=== PATIENT | female | born 1950 | race Caucasian/White ===

== ENCOUNTER 2018-03-19 02:57 | Emergency (ER) | payer MEDICARE, BC ==
[2018-03-19] MEDS ORDERED: SODIUM CHLORIDE 0.9% 1,000 ML IV ONE (03:16)
[2018-03-19 03:24] LABS: BASOPHILS # (AUTO) 0.1 10^3/uL (0.0-0.1); BASOPHILS % (AUTO) 0.7 %; EOSINOPHILS # (AUTO) 0.3 10^3/uL (0.0-0.7); EOSINOPHILS % (AUTO) 2.3 %; HGB - HEMOGLOBIN 17.1 g/dL (12.0-16.0); MEAN CORPUSCULAR HEMOGLOBIN 28.7 pg (27.0-31.0); MEAN CORPUSCULAR HGB CONC 33.6 g/dL (32.0-36.0); MEAN CORPUSCULAR VOLUME 85.6 fL (81.0-99.0); MEAN PLATELET VOLUME 8.6 fL (7.9-10.8); MONOCYTES # (AUTO) 0.9 10^3/uL (0.0-1.0); MONOCYTES % (AUTO) 8.1 %; NEUTROPHILS # (AUTO) 7.5 10^3/uL (1.5-6.6); NEUTROPHILS % (AUTO) 69.9 %; PLT - PLATELET COUNT 450 10^3/uL (130-450); RED BLOOD COUNT 5.96 10^6/uL (4.20-5.40); RED CELL DISTRIBUTION WIDTH 14.8 % (12.0-15.0); WHITE BLOOD COUNT 10.7 x10^3/uL (4.8-10.8)
--- NOTE | 2018-03-19 03:29 | ED Physician Documentation ---
PD HPI NVD - Stated complaint Stated Complaint: DIARRHEA - Chief complaint Chief Complaint: Abd Pain - History obtained from History obtained from: Patient, Family - History of Present Illness Timing - onset: How many days ago (2) Timing - duration: Days (2) Timing - details: Gradual onset, Still present Associated symptoms: Abdominal pain Contributing factors: No: Sick contact, Bad food, Recent antibiotics Improved by: Laying still Worsened by: Eating Similar symptoms before: Has not had sx before Recently seen: Not recently seen - Additonal information Additional information: 67 y/o female with a history of colon resection and chronic diarrhea has developed acute worsening of her usual diarrhea and she has developed vomiting as well. She feels dehydrated and has flow through diarrhea. She reports being in the rest room repeatedly throughout the day. She usually takes a dose of immodium with good results and today this is completely ineffective. 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: Tubal ligation - Present Medications Home Medications: Ambulatory Orders Medication Instructions Recorded Confirmed Metformin HCl [Glucophage Xr] 1,000 mg ORAL BID 11/02/12 03/19/18 Omeprazole [PriLOSEC] 20 mg ORAL DAILY 11/02/12 03/19/18 Ciprofloxacin HCl [Cipro] 500 mg PO BID #10 tablet 03/19/18 Diphenoxylate/Atropine [Lomotil] 1 each PO QID PRN #20 tablet 03/19/18 Fenofibrate 1 tab PO DAILY 03/19/18 03/19/18 Levothyroxine Sodium [Synthroid] 1 tab PO DAILY 03/19/18 03/19/18 Losartan/Hydrochlorothiazide 1 tab PO DAILY 03/19/18 03/19/18 [Losartan-Hctz 100-12.5 mg Tab] Metoprolol Succinate 1 tab PO DAILY 03/19/18 03/19/18 Ondansetron Odt [Zofran] 4 mg TL Q6H PRN #10 tablet 03/19/18 amLODIPine [Norvasc] 2.5 mg PO DAILY 03/19/18 03/19/18 - Allergies Allergies/Adverse Reactions: Allergies Allergy/AdvReac Type Severity Reaction Status Date / Time Penicillins Allergy Nausea Verified 03/19/18 03:06 Sulfa (Sulfonamide Allergy not known Verified 03/19/18 03:06 Antibiotics) PD ED PE NORMAL - Vitals Vital signs reviewed: Yes (tachy ) - General General: Alert and oriented X 3, Well developed/nourished, Other (the patient appears pale with a sour look on her face. ) - HEENT HEENT: Atraumatic, PERRL, EOMI, Other (dry mucous membranes. ) - Neck Neck: Supple, no meningeal sign, No bony TTP - Cardiac Cardiac: No murmur, Other (tachy to 110) - Respiratory Respiratory: No respiratory distress, Clear bilaterally - Abdomen Abdomen: Soft, Other (hyperactive bowel sounds throughout minimal tenderness) - Back Back: No CVA TTP, No spinal TTP - Derm Derm: Normal color, Warm and dry, No rash - Extremities Extremities: No deformity, No edema - Neuro Neuro: Alert and oriented X 3, supervisor shaving and splitting 2-12 intact, No motor deficit, No sensory deficit, Normal speech Eye Opening: Spontaneous Motor: Obeys Commands Verbal: Oriented GCS Score: 15 - Psych Psych: Normal mood, Normal affect Results - Vitals Vitals: Vital Signs - 24 hr 03/19/18 03/19/18 03/19/18 03:00 04:08 05:02 Temperature 36.0 C L Heart Rate 102 H 96 93 Respiratory 19 18 16 Rate Blood Pressure 109/65 137/61 H 115/66 O2 Saturation 95 100 95 03/19/18 03/19/18 06:30 06:53 Temperature Heart Rate 96 93 Respiratory 18 19 Rate Blood Pressure 111/66 114/61 O2 Saturation 94 95 Oxygen O2 Source Room air - Labs Labs: Microbiology 03/19/18 04:05 Clostridium difficile (PCR) - Final Stool 03/19/18 04:05 Campylobacter Antigen Assay - Final Stool Laboratory Tests 03/19/18 03/19/18 03/19/18 03:15 03:15 04:05 WBC 10.7 RBC 5.96 H Hgb 17.1 H Hct 51.1 H MCV 85.6 MCH 28.7 MCHC 33.6 RDW 14.8 Plt Count 450 MPV 8.6 Neut # (Auto) 7.5 H Lymph # (Auto) 2.0 [place] # (Auto) 0.9 Eos # (Auto) 0.3 Baso # (Auto) 0.1 Absolute Nucleated RBC 0.00 Nucleated RBC % 0.0 Sodium 131 L Potassium 3.3 L Chloride 96 L Carbon Dioxide 23 Anion Gap 12.0 BUN 22 H Creatinine 1.2 H Estimated GFR (MDRD) 45 L Glucose 264 H Calcium 8.3 L Total Bilirubin 0.7 AST 22 ALT 21 Alkaline Phosphatase 52 Total Protein 7.2 Albumin 3.7 Globulin 3.5 Albumin/Globulin Ratio 1.1 Lipase 14 L Urine Color YELLOW Urine Clarity CLEAR Urine pH 6.0 Ur Specific [place] 1.025 Urine Protein 30 H Urine Glucose (UA) NEGATIVE Urine Ketones TRACE Urine Occult Blood SMALL H Urine Nitrite NEGATIVE Urine Bilirubin NEGATIVE Urine Urobilinogen 0.2 (NORMAL) Ur Leukocyte Esterase SMALL H Urine RBC 6-10 H Urine WBC 6-10 H Ur Squamous Epith Cells FEW Squamous Urine Bacteria Moderate H Urine Casts 11-25 Hyaline Casts Urine Mucus Few Strands Ur Microscopic Review INDICATED Urine Culture Comments INDICATED Procedures - IVC sono (time) 0315 Bedside IVC sono: IVC measures (cm) (1.13), IVC collapsed c insp (cm) (complete), Dehydration (est 1 liter deficit) PD MEDICAL DECISION MAKING - ED course Complexity details: reviewed old records, reviewed results, re-evaluated patient, considered differential, d/w patient, d/w family ED course: 67 y/o female with flow through diarrhea appears dehydrated on interrogation of the IVC and IV saline is begun. Patient does have low potassium she is administered 10 mEq of potassium intravenously as well. She is administered Lomotil with some improvement in her diarrhea. She has nearly flow through diarrhea and has had this for 3 days. She is much improved at the conclusion of the visit. I discussed with the patient the use of empiric antibiotic for treatment of uncontrolled diarrhea and we will use a 5-day course of Cipro. Departure - Departure Disposition: 01 Home, Self Care Clinical Impression: Dehydration, Hypokalemia due to loss of potassium Condition: Stable Instructions: ED Dehydration, ED Diet High Potassium, ED Diarrhea Bacterial Follow-Up: Tashia Bailey PA-C [Provider Admit Priv/Credential] - Prescriptions: Ciprofloxacin HCl [Cipro] 500 mg PO BID #10 tablet Diphenoxylate/Atropine [Lomotil] 1 each PO QID PRN #20 tablet PRN Reason: Diarrhea Ondansetron Odt [Zofran] 4 mg TL Q6H PRN #10 tablet PRN Reason: Nausea / Vomiting
[2018-03-19 03:35] LABS: ALBUMIN 3.7 g/dL (3.2-5.5); ALBUMIN/GLOBULIN RATIO 1.1 (1.0-2.2); BILIRUBIN,TOTAL 0.7 mg/dL (0.2-1.0); CALCIUM 8.3 mg/dL (8.5-10.3); CREATININE 1.2 mg/dL (0.4-1.0); TOTAL PROTEIN 7.2 g/dL (6.7-8.2)
[2018-03-19] MEDS ORDERED: POTASSIUM BICARB 25 MEQ TABLET PO STA (04:03)
[2018-03-19] MEDS ORDERED: DIPHENOX/ATROPINE 2.5/0.025 MG TABLET PO STA (04:05)
[2018-03-19 04:54] LABS: BILIRUBIN,URINE NEGATIVE (NEGATIVE); GLUCOSE, URINE (UA) NEGATIVE (NEGATIVE); KETONES,URINE (UA) TRACE mg/dL (NEGATIVE); LEUKOCYTE ESTERASE, URINE SMALL (NEGATIVE); NITRITE,URINE NEGATIVE (NEGATIVE); OCCULT BLOOD,URINE SMALL (NEGATIVE); PROTEIN,URINE 30 mg/dL (NEGATIVE); UROBILINOGEN,URINE 0.2 (NORMAL) E.U./dL (NORMAL)
[2018-03-19 04:58] LABS: CLARITY,URINE CLEAR (CLEAR)
[2018-03-19 05:11] LABS: BACTERIA,URINE Moderate /HPF (None Seen); CASTS, URINE 11-25 Hyaline Casts /LPF; MUCUS,URINE Few Strands; SQUAMOUS EPITHELIAL CELL,UR FEW Squamous (<= Few)
[2018-03-19] MEDS ORDERED: POTASSIUM CHLOR 10 MEQ/100 ML 10 MEQ/100 ML BAG IV ONE (06:20)
[2018-03-19 08:03] VITALS: BP 116/72
== END 2018-03-19 07:46 | disposition home or self-care (01) ==
LOC: ED 02:57
DX: E86.0 Dehydration (principal); E87.6 Hypokalemia; E03.9 Hypothyroidism, unspecified; I25.2 Old myocardial infarction
CPT/HCPCS: 36415; 80053; 81001; 83690; 85025; 87045; 87046; 87086; 87181; 87493; 96361; 96365; 99284; 99285; A9270; 81003

== ENCOUNTER 2018-03-27 08:00 | Outpatient (CLI) | payer MEDICARE, BC | END 2018-03-27 23:59 | disposition home or self-care (01) | LOC: LAB.WCP 08:00 | PROVIDERS: ATTEND Family Medicine | DX: R19.7 Diarrhea, unspecified (principal) | CPT/HCPCS: 81599; 83630; 87045; 87046; 87177; 87209; 87329; 87493 ==

== ENCOUNTER 2018-03-30 08:00 | Outpatient (CLI) | payer MEDICARE, BC | END 2018-03-30 23:59 | disposition home or self-care (01) | LOC: LAB.WCP 08:00 | PROVIDERS: ATTEND Family Medicine | DX: R19.7 Diarrhea, unspecified (principal) | CPT/HCPCS: 87045; 87046 ==

== ENCOUNTER 2018-04-24 13:24 | Outpatient (CLI) | payer MEDICARE, BC ==
--- NOTE | 2018-04-27 09:02 | Mammography Report ---
Reason: SCREENING MAMMO Procedure Date: 04/24/2018 Accession Number: [id number] / [id number] Procedure: JASVIR - Screening Mammo w/Andrew CPT Code: FULL RESULT: EXAM: Screening Mammo w/Andrew DATE: 04/24/2018 1:49 PM CLINICAL HISTORY: Screening encounter. No reported risk factors. TECHNIQUE: Bilateral CC and MLO views were obtained. COMPARISON: 02/24/2017 through 12/23/2012. FINDINGS: The breasts demonstrate scattered fibroglandular densities bilaterally. There are typically benign vascular calcifications. No suspicious masses, clustered microcalcifications, or regions of architectural distortion are identified. IMPRESSION: Benign findings RECOMMENDATION: Routine annual screening unless otherwise clinically indicated. BIRADS CATEGORY 2: Benign findings STANDARD QUALIFYING STATEMENTS: 1. This examination was not reviewed with the aid of Computer-Aided Detection (CAD). 2. A negative or benign imaging report should not preclude biopsy if clinically suspicious findings are present. 3. Dense breasts may obscure an underlying neoplasm. 4. This examination was reviewed with the aid of 3D breast imaging (tomosynthesis).
== END 2018-04-24 13:25 | disposition home or self-care (01) ==
LOC: DI 13:24
DX: Z12.31 Encounter for screening mammogram for malignant neoplasm of breast (principal)
CPT/HCPCS: 77063; 77067

== ENCOUNTER 2018-06-30 12:40 | Emergency (ER) | payer MEDICARE, BC ==
[2018-06-30 12:45] VITALS: BP 147/65
--- NOTE | 2018-06-30 13:33 | ED Physician Documentation ---
PD HPI OPHTHO - Stated complaint Stated Complaint: VISUAL DISTURBANCE - Chief complaint Chief Complaint: Heent - History obtained from History obtained from: Patient - History of Present Illness Timing - onset: How many days ago (5) Timing - duration: Days (5) Timing - details: Abrupt onset, Intermittant Pain level max: 0 Pain level now: 0 Location: Both Quality / character: Other (states that she sees bright flashes of colored lights and waves in her vision occassionally) Associated symptoms: No: Redness, Swelling, Tearing, Discharge, Matting, FB sensation, Photophobia, Double vision, Decreased vision, Loss of vision, He adache Contributing factors: No: Exposed to conjunctivitis, Recent URI, FB, UV light (welding etc), Chemical exposure, acid, Chemical exposure, base, Blunt trauma, Penetrating trauma, 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 Review of Systems Constitutional: denies: Fever, Chills Eyes: denies: Loss of vision, Irritation Nose: denies: Rhinorrhea / runny nose, Congestion Throat: denies: Sore throat Cardiac: denies: Chest pain / pressure Respiratory: denies: Cough GI: denies: Abdominal Pain, Nausea, Vomiting, Diarrhea Skin: denies: Rash Musculoskeletal: denies: Neck pain, Back pain Neurologic: denies: Focal weakness, Numbness, Difficulty speaking PD PAST MEDICAL HISTORY - Past Medical History Cardiovascular: [place] Endocrine/Autoimmune: HyPOthyroidism GI: GERD, Hiatal hernia - Past Surgical History Past Surgical History: Yes 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 Cardiovascular: Coronary stent - Present Medications Home Medications: Ambulatory Orders Medication Instructions Recorded Confirmed Metformin HCl [Glucophage Xr] 1,000 mg ORAL BID 11/02/12 03/19/18 Omeprazole [PriLOSEC] 20 mg ORAL DAILY 11/02/12 03/19/18 Ciprofloxacin HCl [Cipro] 500 mg PO BID #10 tablet 03/19/18 Diphenoxylate/Atropine [Lomotil] 1 each PO QID PRN #20 tablet 03/19/18 Fenofibrate 1 tab PO DAILY 03/19/18 03/19/18 Levothyroxine Sodium [Synthroid] 1 tab PO DAILY 03/19/18 03/19/18 Losartan/Hydrochlorothiazide 1 tab PO DAILY 03/19/18 03/19/18 [Losartan-Hctz 100-12.5 mg Tab] Metoprolol Succinate 1 tab PO DAILY 03/19/18 03/19/18 Ondansetron Odt [Zofran] 4 mg TL Q6H PRN #10 tablet 03/19/18 amLODIPine [Norvasc] 2.5 mg PO DAILY 03/19/18 03/19/18 - Allergies Allergies/Adverse Reactions: Allergies Allergy/AdvReac Type Severity Reaction Status Date / Time Penicillins Allergy Nausea Verified 03/19/18 03:06 Sulfa (Sulfonamide Allergy not known Verified 03/19/18 03:06 Antibiotics) - Social History Does the pt smoke?: No Smoking Status: Never smoker Does the pt drink ETOH?: No Does the pt have substance abuse?: No - Immunizations Immunizations are current?: Yes - POLST Patient has POLST: No PD ED PE NORMAL - Vitals Vital signs reviewed: Yes - General General: Alert and oriented X 3, No acute distress, Well developed/nourished - HEENT HEENT: PERRL, Moist mucous membranes, Other (Fundus is visualized bilaterally. Did not visualize any acute changes. Optic nerve is clear. 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 Possible related to small retinal detachment, but vitreous is clear. These do not involve the fovea. We will have her follow-up with her councilor in the morning. Patient counseled regarding signs and symptoms for which I believe and urgent re- evaluation would be necessary. Patient with good understanding of and agreement to plan and is comfortable going home at this time This document was made in part using voice recognition software. While efforts are made to proofread this document, sound alike and grammatical errors may occur. Departure - Departure Disposition: 01 Home, Self Care Clinical Impression: Scotoma Qualifiers: Laterality: bilateral Qualified Code(s): H53.413 - Scotoma involving central area, bilateral Condition: Good Instructions: Flashes and Floaters Follow-Up: your,eye doctor tomorrow [Other] Ashish Esquivel MD [Provider Admit Priv/Credential] - Tomorrow Comments: You need to be seen by an councilor tomorrow. Return if you worsen. Follow-up with your doctor tomorrow for further care. Discharge Date/Time: 06/30/18 13:44
== END 2018-06-30 13:44 | disposition home or self-care (01) ==
LOC: ED 12:40
DX: H53.413 Scotoma involving central area, bilateral (principal)
CPT/HCPCS: 99282; 99283

== ENCOUNTER 2018-12-06 15:37 | Emergency (ER) | payer MEDICARE, BC ==
--- NOTE | 2018-12-06 16:02 | ED Physician Documentation ---
PD HPI NVD - Stated complaint Stated Complaint: VOMITING/DIARRHEA - Chief complaint Chief Complaint: Abd Pain - History obtained from History obtained from: Patient - History of Present Illness Timing - onset: How many days ago (3) Timing - duration: Days (3) Timing - details: Abrupt onset, Still present Associated symptoms: Abdominal pain (Just with vomiting and not consistent), Loss of appetite. No: Fever, Chest pain, Hematemesis, Melena, Dizzy (but feeling weak and some lightheaded today) Contributing factors: No: Sick contact, Bad food, Travel, Recent antibiotics Improved by: No: Vomiting Worsened by: Eating Similar symptoms before: Has not had sx before Recently seen: Not recently seen Review of Systems Constitutional: reports: Myalgias. denies: Fever, Chills Nose: denies: Rhinorrhea / runny nose, Congestion Throat: denies: Sore throat Respiratory: denies: Cough GI: reports: Abdominal Pain, Nausea, Vomiting, Diarrhea. denies: Abdominal Swelling, Hematemesis, Bloody / black stool : denies: Dysuria Skin: denies: Abrasion (s), Laceration (s) Neurologic: reports: Generalized weakness. 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 Cardiovascular: Coronary stent - Present Medications Home Medications: Ambulatory Orders Medication Instructions Recorded Confirmed Omeprazole [PriLOSEC] 20 mg ORAL DAILY 11/02/12 12/06/18 Fenofibrate 1 tab PO DAILY 03/19/18 12/06/18 Levothyroxine Sodium [Synthroid] 1 tab PO DAILY 03/19/18 12/06/18 Losartan/Hydrochlorothiazide 1 tab PO DAILY 03/19/18 12/06/18 [Losartan-Hctz 100-12.5 mg Tab] Metoprolol Succinate 1 tab PO DAILY 03/19/18 12/06/18 amLODIPine [Norvasc] 2.5 mg PO DAILY 03/19/18 12/06/18 Diphenoxylate/Atropine [Lomotil] 1 each PO QID PRN #12 tablet 12/06/18 Liraglutide [Victoza 2-Karel] 0.6 mg SQ DAILY 12/06/18 12/06/18 Ondansetron Odt [Zofran] 4 mg TL Q6H PRN #10 tablet 12/06/18 - Allergies Allergies/Adverse Reactions: Allergies Allergy/AdvReac Type Severity Reaction Status Date / Time fluvastatin [From Lescol] Allergy Unknown Verified 07/02/18 08:35 omeprazole [From Prilosec] Allergy Unknown Verified 07/02/18 08:35 Penicillins Allergy Nausea Verified 03/19/18 03:06 Sulfa (Sulfonamide Allergy not known Verified 03/19/18 03:06 Antibiotics) benazepril [From Lotensin] AdvReac Respiratory Verified 07/02/18 08:35 - Social History Does the pt smoke?: No Smoking Status: Never smoker Does the pt drink ETOH?: No Does the pt have substance abuse?: No - Immunizations Immunizations are current?: Yes - POLST Patient has POLST: No PD ED PE NORMAL - Vitals Vital signs reviewed: Yes - General General: Alert and oriented X 3, No acute distress, Well developed/nourished - HEENT HEENT: Pharynx benign. No: Moist mucous membranes - Neck Neck: Supple, no meningeal sign, No adenopathy - Cardiac Cardiac: RRR, No murmur - Respiratory Respiratory: Clear bilaterally - Abdomen Abdomen: Normal bowel sounds, Soft, Non tender, Non distended, No organomegaly - Derm Derm: Warm and dry. No: Normal color (some pallor) - Extremities Extremities: No deformity, No tenderness to palpate, Normal ROM s pain, No edema, No calf tenderness / cord - Neuro Neuro: Alert and oriented X 3, No motor deficit, Normal speech Results - Vitals Vitals: Vital Signs - 24 hr 12/06/18 12/06/18 15:43 18:31 Temperature 36.0 C L Heart Rate 97 77 Respiratory 14 16 Rate Blood Pressure 124/52 L 119/59 L O2 Saturation 97 99 Oxygen O2 Source Room air - Labs Labs: Laboratory Tests 12/06/18 12/06/18 16:00 16:00 WBC 6.5 RBC 4.75 Hgb 14.4 Hct 42.7 MCV 89.9 MCH 30.3 MCHC 33.7 RDW 13.4 Plt Count 324 MPV 9.7 Neut # (Auto) 4.7 Lymph # (Auto) 0.7 L [place] # (Auto) 0.8 Eos # (Auto) 0.1 Baso # (Auto) 0.0 Absolute Nucleated RBC 0.00 Nucleated RBC % 0.0 Sodium 139 Potassium 3.5 Chloride 101 Carbon Dioxide 24 Anion Gap 14.0 H BUN 31 H Creatinine 0.9 Estimated GFR (MDRD) 63 L Glucose 159 H Calcium 9.4 Magnesium 1.8 Total Bilirubin 0.7 AST 20 ALT 23 Alkaline Phosphatase 40 L Total Protein 7.5 Albumin 4.0 Globulin 3.5 Albumin/Globulin Ratio 1.1 Lipase 35 Departure - Departure Disposition: 01 Home, Self Care Clinical Impression: Nausea vomiting and diarrhea, Dehydration Condition: Stable Record reviewed to determine appropriate education?: Yes Instructions: ED Diet Vomiting Diarrhea Follow-Up: Tashia Bailey PA-C [Primary Care Provider] - Prescriptions: Diphenoxylate/Atropine [Lomotil] 1 each PO QID PRN #12 tablet PRN Reason: Diarrhea Ondansetron Odt [Zofran] 4 mg TL Q6H PRN #10 tablet PRN Reason: Nausea / Vomiting Comments: This commonly will be from a viral illness or food related. Sometimes it can be a bacterial infection such as C. difficile or Campylobacter. Use ondansetron if needed for nausea. Small frequent fluids and bland food initially and progress diet as able. Lomotil if needed for diarrhea. If the diarrhea does persist some another day or 2, then bring a sample of the diarrhea to your primary care provider to have a tested for stool culture and C. difficile. If you resolve in the next day or 2 with symptoms improved then no testing necessarily needed. Return if worsening symptoms again.
[2018-12-06 16:04] LABS: BASOPHILS % (AUTO) 0.3 %; EOSINOPHILS # (AUTO) 0.1 10^3/uL (0.0-0.7); EOSINOPHILS % (AUTO) 1.9 %; HGB - HEMOGLOBIN 14.4 g/dL (12.0-16.0); LYMPHOCYTES # (AUTO) 0.7 10^3/uL (1.5-3.5); LYMPHOCYTES % (AUTO) 11.5 %; MEAN CORPUSCULAR HEMOGLOBIN 30.3 pg (27.0-31.0); MEAN CORPUSCULAR HGB CONC 33.7 g/dL (32.0-36.0); MEAN CORPUSCULAR VOLUME 89.9 fL (81.0-99.0); MEAN PLATELET VOLUME 9.7 fL (7.9-10.8); MONOCYTES # (AUTO) 0.8 10^3/uL (0.0-1.0); NEUTROPHILS # (AUTO) 4.7 10^3/uL (1.5-6.6); PLT - PLATELET COUNT 324 10^3/uL (130-450); RED BLOOD COUNT 4.75 10^6/uL (4.20-5.40); RED CELL DISTRIBUTION WIDTH 13.4 % (12.0-15.0); WHITE BLOOD COUNT 6.5 x10^3/uL (4.8-10.8)
[2018-12-06 16:17] LABS: ALBUMIN/GLOBULIN RATIO 1.1 (1.0-2.2); BILIRUBIN,TOTAL 0.7 mg/dL (0.2-1.0); CALCIUM 9.4 mg/dL (8.5-10.3); CREATININE 0.9 mg/dL (0.4-1.0); TOTAL PROTEIN 7.5 g/dL (6.7-8.2)
[2018-12-06] MEDS ORDERED: ONDANSETRON 4 MG/2 ML VIAL IVP STA (16:21)
[2018-12-06] MEDS ORDERED: SODIUM CHLORIDE 0.9% 1,000 ML IV ONE ×2 (16:21→18:18)
[2018-12-06] MEDS ORDERED: MORPHINE 10 MG/ML VIAL IVP STA (16:22)
[2018-12-06] MEDS ORDERED: DIPHENOX/ATROPINE 2.5/0.025 MG TABLET PO STA (16:22)
[2018-12-06] MEDS ORDERED: FAMOTIDINE 20 MG/2 ML VIAL IVP STA (16:22)
[2018-12-06 16:49] LABS: MAGNESIUM 1.8 mg/dL (1.7-2.8)
[2018-12-06 18:35] VITALS: BP 119/59
[2018-12-06] MEDS ORDERED: ONDANSETRON ODT 4 MG Prepack 2 TL PRN (19:04)
== END 2018-12-06 19:32 | disposition home or self-care (01) ==
LOC: ED 15:37
DX: E86.0 Dehydration (principal); R11.2 Nausea with vomiting, unspecified; R19.7 Diarrhea, unspecified
CPT/HCPCS: 36415; 80053; 83690; 83735; 85025; 96361; 96374; 99283; 99284; A9270

== ENCOUNTER 2019-04-28 09:02 | Outpatient (CLI) | payer MEDICARE, BC ==
--- NOTE | 2019-04-28 13:23 | Mammography Report ---
Reason: ROUTINE MAMMO Procedure Date: 04/28/2019 Accession Number: [id number] / [id number] Procedure: JASVIR - Screening Mammo w/Andrew CPT Code: Final Report FULL RESULT: EXAM: Screening Mammo w/Andrew DATE: 04/28/2019 9:27 AM CLINICAL HISTORY: The patient is an asymptomatic 69-year-old female. No reported personal nor family history of breast cancer. TECHNIQUE: (B) - Bilateral CC and MLO views were obtained. COMPARISON: 04/24/2018, 02/24/2017, 02/21/2016, 02/12/2016, 02/07/2015, 12/28/2013 12/23/2012 PARENCHYMAL PATTERN: (A) - The breasts demonstrate scattered fibroglandular densities bilaterally. FINDINGS: The pattern of asymmetry is stable given positional variation. There are no suspicious masses, calcifications, or areas of distortion. IMPRESSION: Negative examination. BI-RADS category 1. RECOMMENDATION: (ANNUAL) - Recommend routine annual screening mammography. BI-RADS CATEGORY: (1) - Negative. STANDARD QUALIFYING STATEMENTS: A negative or benign imaging report should not preclude biopsy if clinically suspicious findings are present. Dense breasts may obscure an underlying neoplasm. This examination was reviewed with the aid of 3D breast imaging (tomosynthesis).
== END 2019-04-28 09:03 | disposition home or self-care (01) ==
LOC: DI 09:02
DX: Z12.31 Encounter for screening mammogram for malignant neoplasm of breast (principal)
CPT/HCPCS: 77063; 77067

== ENCOUNTER 2019-10-26 08:27 | Outpatient (CLI) | payer MEDICARE, BC ==
--- NOTE | 2019-10-26 09:40 | DEXA Report ---
Reason: POST MENOPAUSAL Procedure Date: 10/26/2019 Accession Number: [id number] / [id number] Procedure: DEX - Dexa Spine and/or Hip CPT Code: Final Report FULL RESULT: PROCEDURE: Dexa Spine and/or Hip INDICATIONS: POST MENOPAUSAL TECHNIQUE: Dual energy x-ray absorptiometry (DXA) was performed on a [employer]. Regions measured are the AP Spine, femoral neck, and if needed forearm. COMPARISON: None. FINDINGS: Lumbar Spine: Bone Mineral Density 1.341 g/cm/cm,T score 1.3, normal Hip: Bone Mineral Density 1.183 g/cm/cm,T score 1.4, normal Femoral Neck: Bone Mineral Density 1.101 g/cm/cm, T score 0.5, normal (T score greater or equal to -1.0: NORMAL) (T score from -1.1 to -2.4: OSTEOPENIA) (T score less than or equal to -2.5 to: OSTEOPOROSIS) Impression: Normal examination without evidence of osteoporosis or osteopenia. Patients with diagnosis of osteoporosis or osteopenia should have regular bone mineral density assessment. For those eligible for Medicare, routine testing is allowed once every 2 years. Testing frequency can be increased for patients who have rapidly progressing disease or for those who are receiving medical therapy to restore bone mass. Reviewed by: Kayla Dick MD, PhD on 10/26/2019 9:39 AM PDT Approved by: Kayla Dick MD, PhD on 10/26/2019 9:39 AM PDT Station ID: [id number]
== END 2019-10-26 08:28 | disposition home or self-care (01) ==
LOC: DI 08:27
PROVIDERS: ATTEND Physician Assistant Medical
DX: Z78.0 Asymptomatic menopausal state (principal)
CPT/HCPCS: 77080

== ENCOUNTER 2020-01-12 08:00 | Outpatient (CLI) | payer MEDICARE, BC ==
[2020-01-12 12:35] LABS: CREATININE,URINE 124.2 mg/dL; MICROALBUM/CREATININE RATIO,UR 37.8 ug/mg (<30.0); MICROALBUMIN,URINE 4.7 mg/dL (0-300.0)
== END 2020-01-12 23:59 | disposition home or self-care (01) ==
LOC: LAB.WCP 08:00
PROVIDERS: ATTEND Physician Assistant Medical
DX: E11.9 Type 2 diabetes mellitus without complications (principal)
CPT/HCPCS: 82043; 82570

== ENCOUNTER 2020-04-05 19:29 | Emergency (ER) | payer MEDICARE, BC ==
[2020-04-05] MEDS ORDERED: SODIUM CHLORIDE 0.9% 1,000 ML IV STA ×3 (19:36→20:35)
[2020-04-05] MEDS ORDERED: ONDANSETRON 4 MG/2 ML VIAL IVP STA (19:36)
--- NOTE | 2020-04-05 20:03 | ED Physician Documentation ---
History of Present Illness - Stated complaint Stated Complaint: NVD - History obtained from History obtained from: Patient - History of Present Illness Timing: Yesterday - Additonal information Additional information: 69-year-old female presents the emergency department with acute onset vomiting and diarrhea. Reports that yesterday a.m. she began vomiting shortly thereafter she began having diarrhea. Over the last 24 hours she has had at least 10 vomiting episodes as well as a similar number of watery stools. She denies any fevers. She denies any focal abdominal tenderness though she is sore from vomiting and does occasionally have abdominal cramping. She denies chest pain or shortness of breath. No focal weakness. No syncopal episodes. No dysuria. She reports taking immodium at home which did help with the diarrhea. no recent travel, sick contacts, new foods or antibiotics She is a diabetic. She also has a history of partial colectomy nearly 20 years ago. She is unclear why that was done. pmh: Coronary artery disease, diabetes, hypertension meds: As needed nitroglycerin, Victoza, glipizide, amlodipine, metoprolol, levothyroxine, losartan, atorvastatin Review of Systems Constitutional: denies: Fever, Chills Eyes: reports: Reviewed and negative Ears: reports: Reviewed and negative Nose: reports: Reviewed and negative Throat: reports: Reviewed and negative Cardiac: reports: Reviewed and negative Respiratory: reports: Reviewed and negative GI: reports: Abdominal Pain, Nausea, Vomiting, Diarrhea. denies: Hematemesis, Bloody / black stool : denies: Dysuria, Frequency, Hesitancy Skin: denies: Rash, Lesions Musculoskeletal: denies: Neck pain Neurologic: reports: Reviewed and negative Psychiatric: reports: Reviewed and negative PD PAST MEDICAL HISTORY - Past Medical History Cardiovascular: [place] Endocrine/Autoimmune: HyPOthyroidism GI: GERD, Hiatal hernia - Past Surgical History Past Surgical History: Yes General: Colonoscopy /SURGICAL ELASTIC KNITTER HAND FRAME: Tubal ligation Cardiovascular: Coronary stent - Present Medications Home Medications: Ambulatory Orders Medication Instructions Recorded Confirmed Omeprazole [PriLOSEC] 20 mg ORAL DAILY 11/02/12 12/06/18 Fenofibrate 1 tab PO DAILY 03/19/18 12/06/18 Levothyroxine Sodium [Synthroid] 1 tab PO DAILY 03/19/18 12/06/18 Losartan/Hydrochlorothiazide 1 tab PO DAILY 03/19/18 12/06/18 [Losartan-Hctz 100-12.5 mg Tab] Metoprolol Succinate 1 tab PO DAILY 03/19/18 12/06/18 amLODIPine [Norvasc] 2.5 mg PO DAILY 03/19/18 12/06/18 Diphenoxylate/Atropine [Lomotil] 1 each PO QID PRN #12 tablet 12/06/18 Liraglutide [Victoza 2-Karel] 0.6 mg SQ DAILY 12/06/18 12/06/18 Ondansetron Odt [Zofran] 4 mg TL Q6H PRN #10 tablet 12/06/18 Ondansetron Odt [Zofran] 4 mg TL Q6H PRN #10 tablet 04/05/20 - Allergies Allergies/Adverse Reactions: Allergies Allergy/AdvReac Type Severity Reaction Status Date / Time fluvastatin [From Lescol] Allergy Unknown Verified 04/05/20 19:34 omeprazole [From Prilosec] Allergy Unknown Verified 04/05/20 19:34 Penicillins Allergy Nausea Verified 04/05/20 19:34 Sulfa (Sulfonamide Allergy not known Verified 04/05/20 19:34 Antibiotics) benazepril [From Lotensin] AdvReac Respiratory Verified 04/05/20 19:34 - Social History Does the pt smoke?: No Smoking Status: Never smoker Does the pt drink ETOH?: No Does the pt have substance abuse?: No - Immunizations Immunizations are current?: Yes - POLST Patient has POLST: No PD ED PE EXPANDED - General General: Alert, No acute distress, Well developed/nourished - HEENT HEENT: Atraumatic, PERRL, EOMI - Neck Neck: Supple w/out meningeal sx, No tenderness - Cardiac Cardiac: Regular Rate, Regular Rhythm, Murmur Present, Radial strong equal, Pedal strong equal, Cap refill < 2 sec - Respiratory Respiratory: Clear to ausultation adarsh. No: Distress, Labored - Abdomen Abdomen: Normal Bowel sounds. No: Tender to palpation, Rebound, Guarding - Neuro Neuro: Alert and Oriented X 3, CNII-XII intact - GCS Eye Opening: Spontaneous Motor: Obeys Commands Verbal: Oriented Total: 15 Results - Vitals Vitals: Vital Signs - 24 hr 04/05/20 04/05/20 19:34 20:58 Temperature 36.7 C 37.4 C Heart Rate 115 H 102 H Respiratory 16 20 Rate Blood Pressure 105/50 L 112/52 L O2 Saturation 94 94 Oxygen O2 Source Room air - Labs Labs: Laboratory Tests 04/05/20 04/05/20 04/05/20 20:01 20:01 20:01 WBC 4.2 L RBC 4.69 Hgb 13.9 Hct 42.2 MCV 90.0 MCH 29.6 MCHC 32.9 RDW 13.9 Plt Count 296 MPV 10.3 Neut # (Auto) Not Reportable Lymph # (Auto) Not Reportable [place] # (Auto) Not Reportable Eos # (Auto) Not Reportable Baso # (Auto) Not Reportable Absolute Nucleated RBC Not Reportable Total Counted 100 Band Neuts % (Manual) 42 H Reactive Lymphs % (Man) 5 Abnorm Lymph % (Manual) 0 Metamyelocytes % 1 H Nucleated RBC % Not Reportable Neutrophils # (Manual) 2.9 Lymphocytes # (Manual) 0.6 L Monocytes # (Manual) 0.5 Eosinophils # (Manual) 0.2 Basophils # (Manual) 0.0 Differential Comment MANUAL DIFFERENTIAL Platelet Estimate NORMAL (130-450,000) Platelet Morphology 1+ LARGE PLATELETS RBC Morph Micro Appear NORMAL APPEARANCE Sodium 135 Potassium 3.4 L Chloride 93 L Carbon Dioxide 27 Anion Gap 15.0 H BUN 42 H Creatinine 1.5 H Estimated GFR (MDRD) 35 L Glucose 263 H Calcium 9.0 Total Bilirubin 1.3 H AST 18 ALT 22 Alkaline Phosphatase 42 Total Protein 7.1 Albumin 3.8 Globulin 3.3 Albumin/Globulin Ratio 1.2 Lipase 19 L Serum Ketones NEGATIVE PD MEDICAL DECISION MAKING - ED course Complexity details: reviewed results, re-evaluated patient, considered differential, d/w patient, d/w technology sales consultant ([facility] hospitalist) ED course: 69-year-old female who has a history of diabetes presents the emergency department with acute nausea and vomiting that began yesterday. At home she did take Imodium which did help with the diarrhea however she had persistent vomiting therefore she comes to the emergency department. On exam she did have mild tachycardia but that did resolve after multiple liters of fluid. She had no focal abdominal tenderness. On labs we do see that she is modestly dehydrated with an elevated BUN and creatinine. Here in the emergency department she was given 3 L of crystalloid. She was also given 4 mg of Zofran which markedly improve the nausea. Following that she was able to sip clear liquids. She does have some hyperglycemia but no negative serum ketones. No findings to suggest DKA. Despite 3 L of fluid in the emergency department patient was unable to urinate and did not have the urge. I discussed this case with the nocturnal hospitalist Dr. Balbuena. We discussed the possibility of bringing the patient in on an observation status to ensure that her kidney function improved overnight and that she began urinating. However Dr. Gregoryu to felt that hydration in the emergency department was appropriate and to simply give her more time. I discussed this with the patient. At this time she is feeling markedly better and would like to be discharged home. We have been unable to get a urinary sample. However she does not have any previous dysuria or suprapubic tenderness. She has no abdominal tenderness on exam therefore CT imaging was de ferred today. She will be discharged with a prescription for Zofran. We discussed that if she is to return to the emergency department if she has uncontrolled vomiting or diarrhea at home despite Zofran or Imodium. She will return with uncontrolled tachycardia, feeling faint suddenly severe belly pain, any fevers or she fails to make urine in the next few hours. Departure - Departure Disposition: 01 Home, Self Care Clinical Impression: Nausea vomiting and diarrhea, Dehydration, CHRISTY (acute kidney injury) Condition: Stable Record reviewed to determine appropriate education?: Yes Instructions: ED Diarrhea Viral Follow-Up: Tashia Bailey PA-C [Primary Care Provider] - Prescriptions: Ondansetron Odt [Zofran] 4 mg TL Q6H PRN #10 tablet PRN Reason: Nausea / Vomiting Comments: I am glad that you are feeling better. The most likely cause of your vomiting and diarrhea is a virus. On labs today it does appear that you are fairly dehydrated. In fact yoru kidney function is decreased today. We did give you 3 L of IV fluids. We also gave you some Zofran. This is a medication that will help with the nausea. I recommend that you take this under the tongue every 4-8 hours. Please attempt to sip clear liquids frequently. It is okay to continue to take the Imodium at home for diarrhea. If at any point you develop fevers have worsening symptoms despite the Zofran at home, you feel excessively weak or dehydrated, do not make urine, please return immediately to the ER You have a Covid test pending. We are doing the screening because of the diarrhea and you are immune compromised with diabetes. You need to self quarantine until the result is done and negative. Do not leave your house. Do not get near anybody. The results should be done in 48 to 72 hours. We will call with a positive result, the fastest way to get a negative result for confirmation though is to go to the hospital website at [email or web address], click on the my [email or web address] tab and sign up for the patient portal.
[2020-04-05 20:10] LABS: BASOPHILS % (AUTO) 0.2 %; EOSINOPHILS % (AUTO) 1.9 %; HGB - HEMOGLOBIN 13.9 g/dL (12.0-16.0); LYMPHOCYTES % (AUTO) 7.9 %; MEAN CORPUSCULAR HEMOGLOBIN 29.6 pg (27.0-31.0); MEAN CORPUSCULAR HGB CONC 32.9 g/dL (32.0-36.0); MEAN PLATELET VOLUME 10.3 fL (7.9-10.8); MONOCYTES % (AUTO) 13.2 %; NEUTROPHILS % (AUTO) 76.6 %; PLT - PLATELET COUNT 296 10^3/uL (130-450); RED BLOOD COUNT 4.69 10^6/uL (4.20-5.40); RED CELL DISTRIBUTION WIDTH 13.9 % (12.0-15.0); WHITE BLOOD COUNT 4.2 x10^3/uL (4.8-10.8)
[2020-04-05 20:18] LABS: ABNORMAL LYMPHS % (MANUAL) 0 %; ALBUMIN 3.8 g/dL (3.2-5.5); ALBUMIN/GLOBULIN RATIO 1.2 (1.0-2.2); BILIRUBIN,TOTAL 1.3 mg/dL (0.2-1.0); CREATININE 1.5 mg/dL (0.4-1.0); TOTAL PROTEIN 7.1 g/dL (6.7-8.2)
[2020-04-05 21:15] LABS: BAND NEUTROPHILS % (MANUAL) 42 %; EOSINOPHILS # (MANUAL) 0.2 10^3/uL (0-0.7); LYMPHOCYTES # (MANUAL) 0.6 10^3/uL (1.5-3.5); LYMPHOCYTES % (MANUAL) 9 %; METAMYELOCYTES % (MANUAL) 1 %; MONOCYTES # (MANUAL) 0.5 10^3/uL (0.0-1.0); RBC MORPHOLOGY (MULTIPLE) NORMAL APPEARANCE (NORMAL)
[2020-04-05 21:16] LABS: DIFFERENTIAL COMMENT MANUAL DIFFERENTIAL; PLATELET ESTIMATE, MANUAL NORMAL (130-450,000) (NORMAL)
[2020-04-05] MEDS ORDERED: ONDANSETRON ODT 4 MG Prepack 2 TL PRN (21:29)
[2020-04-05 22:24] VITALS: BP 114/61
== END 2020-04-05 22:31 | disposition home or self-care (01) ==
LOC: ED 19:29
DX: R11.2 Nausea with vomiting, unspecified (principal); R19.7 Diarrhea, unspecified; E86.0 Dehydration; N17.9 Acute kidney failure, unspecified; Z20.828 Contact with and (suspected) exposure to other viral communicable diseases; E11.65 Type 2 diabetes mellitus with hyperglycemia; Z79.84 Long term (current) use of oral hypoglycemic drugs; I10 Essential (primary) hypertension; I25.10 Atherosclerotic heart disease of native coronary artery without angina pectoris; Z95.5 Presence of coronary angioplasty implant and graft; Z90.49 Acquired absence of other specified parts of digestive tract
CPT/HCPCS: 80053; 82009; 83690; 85025; 96361; 96374; 99283; 99284; U0004

== ENCOUNTER 2020-04-07 11:16 | Observation (INO) | payer MEDICARE, BC ==
--- NOTE | 2020-04-07 11:31 | ED Physician Documentation ---
PD HPI NVD - Stated complaint Stated Complaint: DIARRHEA - Chief complaint Chief Complaint: Abd Pain - History obtained from History obtained from: Patient - History of Present Illness Timing - onset: How many days ago (4) Timing - duration: Days (4) Timing - details: Abrupt onset, Still present Associated symptoms: No: Abdominal pain Contributing factors: No: Sick contact, Bad food, Travel, Recent antibiotics Improved by: No: Eating Worsened by: Eating (feeling of nausea with PO intake attempts.) Similar symptoms before: No diagnosis (has had salmonella once and then presumed viral GE episode in remote past. No regular diarrhea.) Recently seen: Emergency Dept (2 days ago for similar and given IV fluids and meds with improvement. Her Creatinine at the time was modestly increased to 1.5. Discussion with Hospitalist at that time was pt did not meet admission criteria. Has continued with diarrhea, nausea, poor PO intake and now weak/lightheaded since.) Review of Systems Constitutional: denies: Fever, Chills Nose: denies: Rhinorrhea / runny nose, Congestion Throat: denies: Sore throat Respiratory: denies: Cough GI: reports: Nausea, Vomiting, Diarrhea. denies: Abdominal Pain, Abdominal Swelling, Bloody / black stool : denies: Dysuria, Frequency Skin: denies: Rash Neurologic: reports: Generalized weakness, Near syncope. denies: Syncope, Headache PD PAST MEDICAL HISTORY - Past Medical History Cardiovascular: [place] Endocrine/Autoimmune: HyPOthyroidism GI: GERD, Hiatal hernia - Past Surgical History Past Surgical History: Yes General: Colonoscopy /FINAL FINISHER: Tubal ligation Cardiovascular: Coronary stent - Present Medications Home Medications: Ambulatory Orders Medication Instructions Recorded Confirmed Amlodipine Besylate [Norvasc] 1 tab PO TID 04/07/20 04/07/20 Levothyroxine [Synthroid] 175 mcg PO DAILY 04/07/20 04/07/20 Liraglutide [Victoza 2-Karel] 04/07/20 Metoprolol Succinate [Toprol Xl] 1.5 tab PO DAILY 04/07/20 04/07/20 Omeprazole 20 mg PO DAILY 04/07/20 04/07/20 glipiZIDE [Glipizide] 1 tab PO BID 04/07/20 04/07/20 - Allergies Allergies/Adverse Reactions: Allergies Allergy/AdvReac Type Severity Reaction Status Date / Time fluvastatin [From Lescol] Allergy Unknown Verified 04/07/20 11:28 omeprazole [From Prilosec] Allergy Unknown Verified 04/07/20 11:28 Penicillins Allergy Nausea Verified 04/07/20 11:28 Sulfa (Sulfonamide Allergy not known Verified 04/07/20 11:28 Antibiotics) benazepril [From Lotensin] AdvReac Respiratory Verified 04/07/20 11:28 - Social History Does the pt smoke?: No Smoking Status: Never smoker Does the pt drink ETOH?: No Does the pt have substance abuse?: No - Immunizations Immunizations are current?: Yes - POLST Patient has POLST: No PD ED PE NORMAL - Vitals Vital signs reviewed: Yes (hypotensive) - General General: Alert and oriented X 3, Well developed/nourished, Other (sees somewhat pale. ) - HEENT HEENT: Pharynx benign. No: Moist mucous membranes - Neck Neck: Supple, no meningeal sign, No adenopathy - Cardiac Cardiac: RRR (mildly tachycardic), No murmur - Respiratory Respiratory: Clear bilaterally - Abdomen Abdomen: Normal bowel sounds, Soft, Non tender, Non distended, No organomegaly - Back Back: No CVA TTP - Derm Derm: Warm and dry. No: Normal color (pale) - Extremities Extremities: No tenderness to palpate, Normal ROM s pain, No edema, No calf tenderness / cord - Neuro Neuro: Alert and oriented X 3, No motor deficit, Normal speech Results - Vitals Vitals: Vital Signs - 24 hr 04/07/20 04/07/20 04/07/20 11:19 12:00 12:04 Temperature 36.8 C Heart Rate 109 H Respiratory 20 Rate Blood Pressure 93/54 L 71/47 L 76/48 L O2 Saturation 98 04/07/20 04/07/20 04/07/20 12:30 13:00 13:12 Temperature Heart Rate 84 83 Respiratory 18 16 Rate Blood Pressure 88/52 L 93/50 L 126/55 L O2 Saturation 95 95 Oxygen O2 Source Room air - Labs Labs: Laboratory Tests 04/07/20 04/07/20 04/07/20 11:30 11:30 12:44 WBC 7.5 RBC 4.65 Hgb 13.7 Hct 42.0 MCV 90.3 MCH 29.5 MCHC 32.6 RDW 13.9 Plt Count 324 MPV 11.1 H Neut # (Auto) 5.3 Lymph # (Auto) 1.0 L [place] # (Auto) 1.0 Eos # (Auto) 0.2 Baso # (Auto) 0.0 Absolute Nucleated RBC 0.00 Band Neuts % (Manual) Not Reportable Abnorm Lymph % (Manual) Not Reportable Nucleated RBC % 0.0 Neutrophils # (Manual) Not Reportable Lymphocytes # (Manual) Not Reportable Monocytes # (Manual) Not Reportable Eosinophils # (Manual) Not Reportable Basophils # (Manual) Not Reportable Differential Comment Y WBC Morphology NORMAL APPEARANCE Platelet Estimate NORMAL (130-450,000) Platelet Morphology RARE GIANT PLATELETS RBC Morph Micro Appear 1+ POLYCHROMASIA Sodium 133 L Potassium 3.3 L Chloride 95 L Carbon Dioxide 22 Anion Gap 16.0 H BUN 62 H Creatinine 3.5 H Estimated GFR (MDRD) 13 L Glucose 191 H Lactic Acid 2.1 Calcium 8.1 L Magnesium 1.5 L Total Bilirubin 1.0 AST 18 ALT 18 Alkaline Phosphatase 43 Total Protein 7.1 Albumin 3.5 Globulin 3.6 Albumin/Globulin Ratio 1.0 PD MEDICAL DECISION MAKING - ED course Complexity details: reviewed results (Blood pressure is improved with IV fluids. However her kidney function is significantly impaired presumed from dehydration and mild hypotension. We will need to have her in the hospital for continued hydration and evaluation of the diarrhea and watch for the kidney function.), re-evaluated patient, considered differential (The patient persists with diarrhea. She has not had vomiting the past couple of days but poor p.o. intake from nausea. She is feeling weak and lightheaded. Initial vitals show significant dehydration.), d/w patient Departure - Departure Disposition: 68 [facility] DC/Xfer Clinical Impression: CHRISTY (acute kidney injury), Dehydration, Nausea vomiting and diarrhea, Transient hypotension Condition: Stable Record reviewed to determine appropriate education?: Yes
[2020-04-07] MEDS ORDERED: SODIUM CHLORIDE 0.9% 1,000 ML IV STA ×2 (12:02→13:04)
[2020-04-07] MEDS ORDERED: LACTATED RINGERS 1,000 ML IV STA (12:02)
[2020-04-07] MEDS ORDERED: ONDANSETRON 4 MG/2 ML VIAL IVP STA (12:02)
[2020-04-07 12:18] LABS: BASOPHILS % (AUTO) 0.5 %; EOSINOPHILS # (AUTO) 0.2 10^3/uL (0.0-0.7); HGB - HEMOGLOBIN 13.7 g/dL (12.0-16.0); LYMPHOCYTES % (AUTO) 13.5 %; MEAN CORPUSCULAR HEMOGLOBIN 29.5 pg (27.0-31.0); MEAN CORPUSCULAR HGB CONC 32.6 g/dL (32.0-36.0); MEAN CORPUSCULAR VOLUME 90.3 fL (81.0-99.0); MEAN PLATELET VOLUME 11.1 fL (7.9-10.8); MONOCYTES % (AUTO) 12.9 %; NEUTROPHILS # (AUTO) 5.3 10^3/uL (1.5-6.6); NEUTROPHILS % (AUTO) 70.7 %; PLT - PLATELET COUNT 324 10^3/uL (130-450); RED BLOOD COUNT 4.65 10^6/uL (4.20-5.40); RED CELL DISTRIBUTION WIDTH 13.9 % (12.0-15.0); WHITE BLOOD COUNT 7.5 x10^3/uL (4.8-10.8)
[2020-04-07 12:24] LABS: ALBUMIN 3.5 g/dL (3.2-5.5); CALCIUM 8.1 mg/dL (8.5-10.3); CREATININE 3.5 mg/dL (0.4-1.0); MAGNESIUM 1.5 mg/dL (1.7-2.8); TOTAL PROTEIN 7.1 g/dL (6.7-8.2)
[2020-04-07 12:57] LABS: DIFFERENTIAL COMMENT Y; PLATELET ESTIMATE, MANUAL NORMAL (130-450,000) (NORMAL); PLATELET MORPHOLOGY RARE GIANT PLATELETS (NORMAL)
[2020-04-07] MEDS ORDERED: ACETAMINOPHEN 325 MG TABLET PO PRN (13:21)
[2020-04-07] MEDS ORDERED: SODIUM CHLORIDE FLUSH 0.9% 10 ML SYRINGE IVP PRN (13:21)
[2020-04-07] MEDS ORDERED: ONDANSETRON 4 MG/2 ML VIAL IVP PRN (13:21)
[2020-04-07] MEDS ORDERED: PROCHLORPERAZINE 10 MG/2 ML VIAL IVP PRN (13:21)
[2020-04-07] MEDS ORDERED: DIPHENOX/ATROPINE 2.5/0.025 MG TABLET PO STA (13:25)
[2020-04-07] MEDS ORDERED: MAGNESIUM SULFATE 2 GRAM 2 GM/50 ML BAG IV ONE (13:29)
[2020-04-07] MEDS ORDERED: POTASSIUM CHLORIDE 20 MEQ TABLET PO STA (13:29)
--- NOTE | 2020-04-07 13:33 | HISTORY & PHYSICAL EXAMINATION ---
Chief Complaint - Chief Complaint Chief Complaint: N/V/D History of Present Illness - Admitted From Admitted From:: ER - History Obtained From Records Reviewed: Ramon History obtained from: pt Exam Limitations: no - History of Present Illness HPI Comment/Other: This is a 69-years old female with a past medical history significant for hyperlipidemia, hypertension, hypothyroidism, GERD And diabetic 2, history of partial colectomy nearly 20 years ago, Who present ER for complaint of Persistent diarrhea, and nausea with poor oral intake. Patient present emergency department 2 days ago with similar symptoms nausea, vomiting and diarrhea, and elevated creatinine. Patient was given intravenous IV fluids and the patient f eel better then discharged. Pt Reports starting two days ago she began vomiting shortly thereafter she began having diarrhea. she has had multiple vomiting episodes as well as a similar number of watery stools. After she was discharged from hospital, she still continue to have nausea, difficult to have oral intake but conceding of vomiting, and she report she continue to have diarrhea. She denies fevers, chill, cough, focal abdominal tenderness though she is sore from vomiting, and she does occasionally have abdominal cramping. She also denies chest pain or shortness of breath. She denies focal weakness, syncopal episodes or dysuria. She denies recent travel, sick contacts, new foods or antibiotics. Routine laboratory test show her creatinine today is 3.5 from 1.5 two days ago, Magnesium 1.5, potassium 3.3. Patient's C. difficile test is pending, COVID-19 test is just ordered and pending. In the ER, patient is afebrile but patient had significantly hypotension with tachycardia. After the patient was given intravenous IV fluids and perfusion, patient's hemodynamic became stable. Discussed the care goal with the patient, patient request History - Past Medical History Cardiovascular: reports: [place] Endocrine/Autoimmune: reports: HyPOthyroidism GI: reports: GERD, Hiatal hernia MRSA Hx?: No - Past Surgical History General: reports: Colonoscopy /SINKER WINDER: reports: Tubal ligation Cardiovascular: reports: Coronary stent - POLST Patient has POLST: No Meds/Allgy - Home Medications Home Medications: Ambulatory Orders Medication Instructions Recorded Confirmed Amlodipine Besylate [Norvasc] 1 tab PO TID 04/07/20 04/07/20 Atorvastatin [Lipitor] 40 mg PO DAILY 04/07/20 04/07/20 Latanoprost 0.005% Ophth Drops 04/07/20 [Xalatan Ophth Drops] Latanoprost [Xalatan] 2.5 ml OP 04/07/20 Levothyroxine [Synthroid] 175 mcg PO DAILY 04/07/20 04/07/20 Liraglutide [Victoza 2-Karel] 0.6 mg SQ DAILY 04/07/20 Losartan/Hydrochlorothiazide 2 tab PO DAILY 04/07/20 04/07/20 [Hyzaar 50-12.5 Tablet] Metoprolol Succinate [Toprol Xl] 1.5 tab PO DAILY 04/07/20 04/07/20 Nitroglycerin [Nitrostat] 04/07/20 Omeprazole [PriLOSEC] 20 mg PO DAILY 04/07/20 Ondansetron Odt [Zofran Odt] 4 mg PO DAILY 04/07/20 Timolol 0.5% Ophth Drops [Timoptic 04/07/20 0.5% Ophth Drops] glipiZIDE [Glipizide] 1 tab PO BID 04/07/20 04/07/20 - Allergies Allergies/Adverse Reactions: Allergies Allergy/AdvReac Type Severity Reaction Status Date / Time fluvastatin [From Lescol] Allergy Unknown Verified 04/07/20 11:28 omeprazole [From Prilosec] Allergy Unknown Verified 04/07/20 11:28 Penicillins Allergy Nausea Verified 04/07/20 11:28 Sulfa (Sulfonamide Allergy not known Verified 04/07/20 11:28 Antibiotics) benazepril [From Lotensin] AdvReac Respiratory Verified 04/07/20 11:28 Exam - Vital Signs Vital Signs: Vital Signs x48h Temp Pulse Resp BP Pulse Ox 04/07/20 13:12 83 16 126/55 L 95 04/07/20 13:00 93/50 L 04/07/20 12:30 84 18 88/52 L 95 04/07/20 12:04 76/48 L 04/07/20 12:00 71/47 L 04/07/20 11:19 36.8 C 109 H 20 93/54 L 98 Conclusion/Plan - Problem List (1) Nausea vomiting and diarrhea Conclusion/Plan: Patient had persistent nausea, vomiting and diarrhea, patient denies focal abdominal pain, so There is no image study as far yet. C. difficile test, ova and parasite, and stool culture, and norovirus test are pending. Patient has no respiratory travel, no sickness contact. At this point, we will suspect patient has virus gastroenteritis. If patient continue have symptoms and not improve, we may have imaging study for patient. Patient already had 3 liter of intravenous IV fluids in the ER, we will continue intravenous IV fluids at 100 cc/h, Clear liquid diet. Laboratory monitoring and vital signs monitoring. (2) CHRISTY (acute kidney injury) Conclusion/Plan: Patient had a significant increased creatinine, today creatinine 3.5, 2 days ago it is 1.5. Because the patient continued to have nausea, vomiting and diarrhea, her acute kidney injury may be caused by significantly dehydration and prerenal azotemia. We will continue intravenous IV fluids, continue laboratory technologist. (3) Transient hypotension Conclusion/Plan: Patient had transience of hypotension and tachycardia in the ER, after the patient had intravenous IV fluids with hydration and 3 liter of NS, patient blood pressure become normative. We will hold patient home blood pressure medicine now and closely vital signs monitor, Continue hydration to patient (4) Hypomagnesemia Conclusion/Plan: Patient had a magnesium of 1.5, likely from patient persisting vomiting and diarrhea, We will replace it and laboratory technologist (5) Hypokalemia Conclusion/Plan: Potassium is 3.3 today, we will replace and laboratory technologist (6) Diabetes Conclusion/Plan: Patient has a history of diabetic, she did not take insulin at home, we will start with insulin, sliding scale, glucose check, and hypoglycemia protocol. (7) HTN (hypertension) Conclusion/Plan: Patient has a history of hypertension, we will hold patient blood pressure medicine now, Continue vital signs monitor, We will resume after confirmed. (8) Hypothyroidism Conclusion/Plan: We will check TSH, resume home Synthroid - Lab Results Fish Bones: 04/07/20 11:30 04/07/20 11:30 Core Measures - Anticipated LOS I expect patient to be DC'd or transferred within 96 hours.: Yes - DVT/VTE - Prophylaxis VTE/DVT Device ordered at admit?: Yes VTE/DVT Prophylaxis med ordered at admit?: Yes
[2020-04-07] MEDS ORDERED: PANTOPRAZOLE 40 MG VIAL IVP SCH (14:00)
[2020-04-07] MEDS ORDERED: FAMOTIDINE 20 MG/2 ML VIAL IVP SCH (14:00)
[2020-04-07 14:51] LABS: HEMOGLOBIN A1c% 7.2 % (4.27-6.07)
[2020-04-07] MEDS: PANTOPRAZOLE 40 MG VIAL IVP SCH (15:06)
[2020-04-07] MEDS: LACTATED RINGERS 1,000 ML IV SCH (15:06)
[2020-04-07 16:12] LABS: C. PNEUMONIAE- RESP PCR PANEL NOT DETECTED
--- NOTE | 2020-04-07 16:13 | PHARMACY PROGRESS NOTE ---
- Best Possible Medication History Admit Date and Time: 04/07/20 1321 Processed by: Pharmacy Medication History completed: Yes Patient Interview: Completed Secondary Source(s): Physician records, Pharmacy records, Insurance records As the person ultimately responsible for medication therapy, providers are able to order a medication from an existing home medication list in [facility] via the "Reconcile Routine" prior to Confirmation of that medication by systems support engineer. Such practice is discouraged except when the physician, in their clinical judgment, deems that a medical need exists for a medication without regard to previous use.
[2020-04-07] MEDS: SODIUM CHLORIDE FLUSH 0.9% 10 ML SYRINGE IVP SCH (17:46)
[2020-04-07] MEDS: INSULIN ASPART 300 UNIT/3 ML PEN SUBQ SCH ×2 (17:46→21:40)
[2020-04-07] MEDS: HEPARIN 5,000 UNIT/ML VIAL SUBQ SCH (20:49)
[2020-04-07] MEDS: LOPERAMIDE 2 MG CAPSULE PO PRN (20:52)
[2020-04-08] MEDS: LACTATED RINGERS 1,000 ML IV SCH (00:15)
[2020-04-08] MEDS: SODIUM CHLORIDE FLUSH 0.9% 10 ML SYRINGE IVP SCH ×2 (01:17→08:18)
[2020-04-08 05:14] LABS: BASOPHILS % (AUTO) 0.9 %; EOSINOPHILS % (AUTO) 1.9 %; HGB - HEMOGLOBIN 11.9 g/dL (12.0-16.0); MEAN CORPUSCULAR HEMOGLOBIN 30.4 pg (27.0-31.0); MEAN CORPUSCULAR HGB CONC 33.1 g/dL (32.0-36.0); MEAN CORPUSCULAR VOLUME 91.8 fL (81.0-99.0); MEAN PLATELET VOLUME 10.5 fL (7.9-10.8); MONOCYTES % (AUTO) 13.4 %; NEUTROPHILS % (AUTO) 54.1 %; PLT - PLATELET COUNT 262 10^3/uL (130-450); RED BLOOD COUNT 3.91 10^6/uL (4.20-5.40); WHITE BLOOD COUNT 5.3 x10^3/uL (4.8-10.8)
[2020-04-08 05:26] LABS: CALCIUM 7.6 mg/dL (8.5-10.3); CREATININE 1.2 mg/dL (0.4-1.0); MAGNESIUM 2.1 mg/dL (1.7-2.8)
[2020-04-08 05:50] LABS: DIFFERENTIAL COMMENT MANUAL DIFFERENTIAL; PLATELET ESTIMATE, MANUAL NORMAL (130-450,000) (NORMAL); PLATELET MORPHOLOGY NORMAL APPEARANCE (NORMAL); RBC MORPHOLOGY (MULTIPLE) NORMAL APPEARANCE (NORMAL)
[2020-04-08] MEDS ORDERED: LEVOTHYROXINE 100 MCG TABLET PO SCH (07:00)
[2020-04-08] MEDS ORDERED: LEVOTHYROXINE 75 MCG TABLET PO SCH (07:00)
[2020-04-08] MEDS: POTASSIUM CHLOR 10 MEQ/100 ML 10 MEQ/100 ML BAG IV SCH ×4 (07:00→10:57)
[2020-04-08] MEDS: PANTOPRAZOLE 40 MG VIAL IVP SCH (07:01)
[2020-04-08] MEDS: INSULIN ASPART 300 UNIT/3 ML PEN SUBQ SCH ×2 (08:10→12:06)
[2020-04-08] MEDS: HEPARIN 5,000 UNIT/ML VIAL SUBQ SCH (08:15)
[2020-04-08 08:37] VITALS: BP 113/54
[2020-04-08] MEDS: LOPERAMIDE 2 MG CAPSULE PO PRN ×2 (10:00→13:09)
--- NOTE | 2020-04-08 12:17 | Discharge Plan ---
Discharge Plan Problem Reviewed?: Yes Disposition: Home, Self Care Condition: Fair Prescriptions: Loperamide [Imodium] 2 mg PO QID PRN #6 capsule PRN Reason: Diarrhea Diet: Soft Activity Restrictions: Activity as Tolerated Instruction Topics: ED Gastroenteritis Viral, ED Diet Brat Expanded Ch Health Concerns: You were placed in Observation status to treat your nausea and the diarrhea which caused dehydration, kidney stress and electrolyte abnormalities. There is no C. difficile bacteria in the diarrhea, therefore you may take Lomotil to slow it down. A prescription was electronically ordered at your [facility] pharmacy. Please eat a bland and soft diet for several days, advance the diet as tolerated. Stay well-hydrated with fluids such as broths, juices and water and electrolyte fluids (Gatorade and Propel). Your blood pressure is not elevated and because you were dehydrated, do not resume your blood pressure medications yet. You may restart the Amlodipine on Tuesday 04/10. You may restart the other blood pressure medications on Thursday 04/12. Because your diet will be lower in starches than usual, please resume your Glipizide on Tuesday 04/10 and your Victoza on Thursday 04/12. Please see your PCP in the next 1 to 2 weeks for hospital follow-up. Plan of Treatment: As above. Care Goals: Improvement in symptoms and stabilization are the goals. Assessment: Patient understands and is agreeable with the plan. No Smoking: If you smoke, Please STOP! Call for help. Follow-up with: Tashia Bailey PA-C [Primary Care Provider] -
--- NOTE | 2020-04-08 12:23 | DISCHARGE SUMMARY ---
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 Patient present emergency department 2 days ago with similar symptoms nausea, vomiting and diarrhea, and elevated creatinine. Patient was given intravenous IV fluids and the patient feel better then discharged. Pt Reports starting two days ago she began vomiting shortly thereafter she began having diarrhea. she has had multiple vomiting episodes as well as a similar number of watery stools. After she was discharged from hospital, she still continue to have nausea, difficult to have oral intake but conceding of vomiting, and she report she continue to have diarrhea. She denies fevers, chill, cough, focal abdominal tenderness though she is sore from vomiting, and she does occasionally have abdominal cramping. She also denies chest pain or shortness of breath. She denies focal weakness, syncopal episodes or dysuria. She denies recent travel, sick contacts, new foods or antibiotics. Routine laboratory test show her creatinine today is 3.5 from 1.5 two days ago, Magnesium 1.5, potassium 3.3. Patient's C. difficile test is pending, COVID-19 t est is just ordered and pending. In the ER, patient is afebrile but patient had significantly hypotension with tachycardia. After the patient was given intravenous IV fluids and perfusion, patient's hemodynamic became stable. Discussed the care goal with the patient, patient request Full Code status. - HOSPITAL COURSE Hospital Course: (1) Nausea vomiting and diarrhea Patient had persistent nausea, vomiting and diarrhea, denied focal abdominal pain. There is no image study. C. difficile test returned neg, thus she received a dose of Imodium and this decreased her diarrhea substantially. The stool for ova and parasite, stool culture, and norovirus test were pending. COVID test was neg. We suspected patient had vial gastroenteritis. She received intravenous IV fluids in the ER, and continued intravenous IV fluids at 100 cc/h. Clear liquid diet was ordered and tolerated, and was advanced to pureed before discharge. Was discharged home with several more tablets of Imodium to take as needed diarrhea. She was advised to stay well-hydrated. She was advised to eat a bland (BRAT) diet for the next 3 to 4 days. (2) CHRISTY (acute kidney injury) Patient had a significant increased creatinine of 3.5, and two days previously it was 1.5. It was likely caused by significant dehydration and prerenal azotemia. We gave intravenous IV fluids aggressively. The following day, the creatinine was 1.2 and she was discharged home with instructions to stay well- hydrated. (3) Transient hypotension Patient had transient low BP and tachycardia in the ER. She got 3 liter of NS in the ER and BP improved to a normal range. We put on hold her home blood pressure medicines and continued iv hydration til discharge. (4) Hypomagnesemia Patient had a magnesium of 1.5, likely from patient persisting vomiting and diarrhea. It was replaced and corrected to 2.1. (5) Hypokalemia Potassium was low and was replaced. (6) Diabetes Patient has a history of diabetes mellitus on oral Glipizide and Victoza. We ordered sliding scale insulin, glucose Accucheks and hypoglycemia protocol. Because she needs to have several days of a bland diet, she was instructed not to resume her Glipizide for 2 more days, and not to restart the Victoza for 4 more days. (7) HTN (hypertension) Patient has a history of hypertension on 3 agents. We held patient's blood pressure medicine due to low BP. On the day of discharge, her blood pressure was 120 systolic with no BP meds taken. She was advised to resume the Amlodipine in 2 days, and to resume the other 2 blood pressure medications in 4 days. (8) Hypothyroidism Her TSH was good at 2.7 and we continued her home Synthroid dose. - ALLERGIES Allergies/Adverse Reactions: Allergies Allergy/AdvReac Type Severity Reaction Status Date / Time fluvastatin [From Lescol] Allergy Unknown Verified 04/07/20 11:28 omeprazole [From Prilosec] Allergy Unknown Verified 04/07/20 11:28 Penicillins Allergy Nausea Verified 04/07/20 11:28 Sulfa (Sulfonamide Allergy not known Verified 04/07/20 11:28 Antibiotics) benazepril [From Lotensin] AdvReac Respiratory Verified 04/07/20 11:28 - MEDICATIONS Home Medications: Ambulatory Orders Medication Instructions Recorded Confirmed Amlodipine Besylate [Norvasc] 2.5 mg PO QPM 04/07/20 04/07/20 Amlodipine Besylate [Norvasc] 5 mg PO DAILY 04/07/20 04/07/20 Atorvastatin [Lipitor] 40 mg PO QPM 04/07/20 04/07/20 Latanoprost 0.005% Ophth Drops 1 drops LEFTEYE DAILY 04/07/20 04/07/20 [Xalatan Ophth Drops] Levothyroxine Sodium [Synthroid] 175 mcg PO QDAC 04/07/20 04/07/20 Liraglutide [Victoza 2-Karel] 1.8 mg SUBQ DAILY 04/07/20 04/07/20 Losartan/Hydrochlorothiazide 2 tab PO DAILY 04/07/20 04/07/20 [Hyzaar 50-12.5 Tablet] Metoprolol Succinate [Toprol Xl] 150 mg PO DAILY 04/07/20 04/07/20 Omeprazole [PriLOSEC] 20 mg PO DAILY 04/07/20 04/07/20 Ondansetron Odt [Zofran Odt] 4 mg PO DAILY 04/07/20 04/07/20 glipiZIDE [Glipizide] 10 mg PO BID 04/07/20 04/07/20 Loperamide [Imodium] 2 mg PO QID PRN #6 capsule 04/08/20 - PHYSICAL EXAM AT DISCHARGE General Appearance: positive: No acute distress, Alert Eyes Bilateral: positive: Normal inspection, EOMI ENT: positive: ENT inspection nml, No signs of dehydration Neck: positive: Nml inspection, No JVD Respiratory: positive: No respiratory distress Cardiovascular: positive: Regular rate & rhythm Abdomen: positive: Non-tender, Nml bowel sounds, No distention Skin: positive: Warm, Dry Extremities: positive: Non-tender, No pedal edema Neurologic/Psychiatric: positive: Oriented x3, Motor nml - LABS Result Diagrams: 04/08/20 04:55 04/08/20 04:55 - DIAGNOSTIC IMAGING Diagnostic Imaging Results: Final report reviewed - FOLLOW UP Follow Up: See PCP in 1-2 weeks for hospital follow-up. - TIME SPENT Time Spent in Discharge (Minutes): 35
== END 2020-04-08 13:45 | disposition home or self-care (01) ==
LOC: ED 11:16 → MS3 13:21
PROVIDERS: ADMIT Nurse Practitioner Gerontology; ATTEND Internal Medicine
DX: N17.9 Acute kidney failure, unspecified (principal); R19.7 Diarrhea, unspecified; R11.2 Nausea with vomiting, unspecified; E87.6 Hypokalemia; E83.42 Hypomagnesemia; E86.0 Dehydration; I95.9 Hypotension, unspecified; I10 Essential (primary) hypertension; E11.9 Type 2 diabetes mellitus without complications; E78.5 Hyperlipidemia, unspecified; E03.9 Hypothyroidism, unspecified; K21.9 Gastro-esophageal reflux disease without esophagitis; K44.9 Diaphragmatic hernia without obstruction or gangrene; Z90.49 Acquired absence of other specified parts of digestive tract; Z20.828 Contact with and (suspected) exposure to other viral communicable diseases; I25.2 Old myocardial infarction; Z79.84 Long term (current) use of oral hypoglycemic drugs; Z79.899 Other long term (current) drug therapy
CPT/HCPCS: 36415; 80048; 80053; 81599; 83036; 83605; 83735; 84443; 85025; 87493; 87631; 87798; 96361; 96365; 96366; 96367; 96372; 96375; 96376; 99284; 99285; A9270; G0378; J7120; 0202U; 87045; 87046

== ENCOUNTER 2020-04-13 10:02 | Outpatient (CLI) | payer MEDICARE, BC ==
[2020-04-13 14:57] LABS: CALCIUM 9.2 mg/dL (8.5-10.3); CREATININE 2.4 mg/dL (0.4-1.0); MAGNESIUM 1.7 mg/dL (1.7-2.8)
== END 2020-04-13 10:03 | disposition home or self-care (01) ==
LOC: LAB.N 10:02
PROVIDERS: ATTEND Physician Assistant Medical
DX: E11.9 Type 2 diabetes mellitus without complications (principal); E83.42 Hypomagnesemia
CPT/HCPCS: 36415; 80048; 83735

== ENCOUNTER 2020-04-25 08:17 | Outpatient (CLI) | payer MEDICARE, BC ==
--- NOTE | 2020-04-26 12:28 | Mammography Report ---
BILATERAL DIGITAL SCREENING MAMMOGRAM 3D/2D: 04/25/2020 CLINICAL: Routine screening. Comparison is made to exams dated: 04/28/2019 mammogram, 04/24/2018 mammogram, 02/24/2017 mammogram, 02/20 mammogram, 02/12/2016 mammogram, and 02/07/2015 mammogram - [facility]. Ther e are scattered fibroglandular elements in both breasts. There is a possible 0.3 cm oval equal density asymmetry in the right breast middle depth central to t he nipple seen on the craniocaudal view only. This is more prominent. No other significant masses, calcifications, or other findings are seen in either breast. IMPRESSION: INCOMPLETE: NEEDS ADDITIONAL IMAGING EVALUATION The possible 0.3 cm oval equal density asymmetry in the right breast is indeterminate. Additional vi ews with possible ultrasound are recommended. This exam was interpreted at Station ID: [id number]. NOTE: For mammograms, a report in lay terms will be sent to the patient. Approximately 15% of breast malignancies will not be visualized mammographically. In the management of a palpable breast mass, a negative mammogram must not discourage biopsy of a clinically suspicious lesion. Electronically Signed By: Henry Fink M.D. aty/:04/25/2020 09:48:58 ACR BI-RADS Category 0: Incomplete 3340F PARENCHYMAL PATTERN: (A) - The breast(s) demonstrate(s) scattered fibroglandular densities. BI-RADS CATEGORY: (0) - 0 Mammo and [place] [id number] Immediate follow-up LATERALITY: (R)
== END 2020-04-25 08:18 | disposition home or self-care (01) ==
LOC: DI.N 08:17
DX: Z12.31 Encounter for screening mammogram for malignant neoplasm of breast (principal); R92.8 Other abnormal and inconclusive findings on diagnostic imaging of breast; N17.9 Acute kidney failure, unspecified
CPT/HCPCS: 36415; 77067; 80048

== ENCOUNTER 2020-04-25 08:58 | Outpatient (CLI) | payer MEDICARE, BC ==
[2020-04-25 13:08] LABS: CALCIUM 9.8 mg/dL (8.5-10.3)
== END 2020-04-25 08:59 | disposition home or self-care (01) ==
LOC: LAB.N 08:58
PROVIDERS: ATTEND Physician Assistant Medical
DX: N17.9 Acute kidney failure, unspecified (principal)
CPT/HCPCS: 36415; 80048

== ENCOUNTER 2020-05-21 09:01 | Inpatient (IN) | payer MEDICARE, BC ==
[2020-05-21] MEDS ORDERED: SODIUM CHLORIDE 0.9% 1,000 ML IV STA ×2 (09:19→10:48)
--- NOTE | 2020-05-21 09:27 | ED Physician Documentation ---
PD HPI ABD PAIN - Stated complaint Stated Complaint: DIARRHEA/VOMITING - Chief complaint Chief Complaint: Abd Pain - History obtained from History obtained from: Patient - Additional information Additional information: 70-year-old woman had a partial colectomy 20 years ago for bowel obstruction. She never had an ostomy. She is also diabetic. She was admitted last month for diarrhea associated with significant acute kidney injury. Her baseline creatinine is usually around 0.9, her creatinine peaked at 3.5. She recovered from that episode and was doing okay for a few weeks. Still had some poor appetite and malaise, 5 days ago became acutely ill with vomiting and diarrhea again. The vomiting has ceased after using Zofran, but the diarrhea is persistent, about 10 episodes a day and watery. She is starting to feel dizzy from it, but does not feel quite as bad as when she was admitted last month. No sick contacts, recent travel, or antibiotic use. Review of Systems Ten Systems: 10 systems reviewed and negative Constitutional: reports: Fatigue. 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 Cardiovascular: Coronary stent - Present Medications Home Medications: Ambulatory Orders Medication Instructions Recorded Confirmed Amlodipine Besylate [Norvasc] 2.5 mg PO QPM 04/07/20 05/21/20 Amlodipine Besylate [Norvasc] 5 mg PO DAILY 04/07/20 05/21/20 Atorvastatin [Lipitor] 40 mg PO QPM 04/07/20 05/21/20 Latanoprost 0.005% Ophth Drops 1 drops LEFTEYE DAILY 04/07/20 05/21/20 [Xalatan Ophth Drops] Levothyroxine Sodium [Synthroid] 175 mcg PO QDAC 04/07/20 05/21/20 Liraglutide [Victoza 2-Karel] 1.8 mg SUBQ DAILY 04/07/20 05/21/20 Losartan/Hydrochlorothiazide 2 tab PO DAILY 04/07/20 05/21/20 [Hyzaar 50-12.5 Tablet] Metoprolol Succinate [Toprol Xl] 150 mg PO DAILY 04/07/20 05/21/20 Omeprazole [PriLOSEC] 20 mg PO DAILY 04/07/20 05/21/20 Ondansetron Odt [Zofran Odt] 4 mg PO DAILY 04/07/20 05/21/20 glipiZIDE [Glipizide] 10 mg PO BID 04/07/20 05/21/20 Loperamide [Imodium] 2 mg PO QID PRN #6 capsule 04/08/20 05/21/20 - Allergies Allergies/Adverse Reactions: Allergies Allergy/AdvReac Type Severity Reaction Status Date / Time fluvastatin [From Lescol] Allergy Unknown Verified 05/21/20 09:12 omeprazole [From Prilosec] Allergy Unknown Verified 05/21/20 09:12 Penicillins Allergy Nausea Verified 05/21/20 09:12 Sulfa (Sulfonamide Allergy not known Verified 05/21/20 09:12 Antibiotics) benazepril [From Lotensin] AdvReac Respiratory Verified 05/21/20 09:12 - Social History Does the pt smoke?: No Smoking Status: Never smoker Does the pt drink ETOH?: No Does the pt have substance abuse?: No - Immunizations Immunizations are current?: Yes - POLST Patient has POLST: No PD ED PE NORMAL - Vitals Vital signs reviewed: Yes (She is hypotensive and tachycardic) - General General: Alert and oriented X 3, No acute distress - HEENT HEENT: PERRL, EOMI - Neck Neck: Supple, no meningeal sign, No bony TTP - Cardiac Cardiac: RRR, No murmur - Respiratory Respiratory: No respiratory distress, Clear bilaterally - Abdomen Abdomen: Normal bowel sounds, Soft, Non tender - Derm Derm: Normal color, Warm and dry - Extremities Extremities: No edema, No calf tenderness / cord - Neuro Neuro: Alert and oriented X 3, Normal speech Results - Vitals Vitals: Vital Signs - 24 hr 05/21/20 05/21/20 05/21/20 09:13 09:19 09:46 Temperature 36.8 C Heart Rate 116 H 108 H 104 H Respiratory 18 29 H 22 Rate Blood Pressure 86/56 L 104/64 98/56 L O2 Saturation 100 94 96 05/21/20 05/21/20 05/21/20 09:56 10:12 10:30 Temperature Heart Rate 106 H 94 98 Respiratory 24 12 23 Rate Blood Pressure 105/94 H 99/55 L 113/63 O2 Saturation 95 94 96 05/21/20 10:59 Temperature Heart Rate 98 Respiratory 19 Rate Blood Pressure 104/52 L O2 Saturation 95 Oxygen O2 Source Room air - EKG (time done) 0924 Rate: Rate (enter#) (111) Rhythm: Sinus tachycardia, LAE Grandin: Normal Intervals: Normal HI QRS: Normal Ischemia: Non specific changes (Mild inferior and lateral ST depression with flattened T waves throughout) Compare to prior EKG: Old EKG unavailable (no priors) Computer interpretation: Agree with computer - Labs Labs: Laboratory Tests 05/21/20 05/21/20 05/21/20 09:00 09:20 09:20 WBC 8.3 RBC 5.31 Hgb 15.8 Hct 47.1 H MCV 88.7 MCH 29.8 MCHC 33.5 RDW 13.6 Plt Count 408 MPV 10.0 Neut # (Auto) 5.0 Lymph # (Auto) 2.0 Mcdonough # (Auto) 0.9 Eos # (Auto) 0.3 Baso # (Auto) 0.0 Absolute Nucleated RBC 0.00 Nucleated RBC % 0.0 Sodium 133 L Potassium 3.5 Chloride 90 L Carbon Dioxide 26 Anion Gap 17.0 H BUN 48 H Creatinine 2.9 H Estimated GFR (MDRD) 16 L Glucose 230 H Lactic Acid Calcium 8.8 Magnesium 2.0 1.7 Total Bilirubin 1.2 H AST 16 ALT 21 Alkaline Phosphatase 71 Troponin I High Sens Total Protein 8.0 Albumin 4.0 Globulin 4.0 Albumin/Globulin Ratio 1.0 Nasal Adenovirus (PCR) Nasal B. parapertussis DNA (PCR) Nasal Coronavir 229E PCR Nasal Coronavir HKU1 PCR Nasal Coronavir NL63 PCR Nasal Coronavir OC43 PCR Nasal Enterovir/Rhinovir PCR Nasal Influenza B PCR Nasal Influenza A PCR Nasal Parainfluen 1 PCR Nasal Parainfluen 2 PCR Nasal Parainfluen 3 PCR Nasal Parainfluen 4 PCR Nasal RSV (PCR) Nasal B.pertussis DNA PCR Nasal C.pneumoniae (PCR) Nish Human Metapneumo PCR Nasal M.pneumoniae (PCR) Nasal SARS-CoV-2 (PCR) 05/21/20 05/21/20 05/21/20 09:20 09:37 09:40 WBC RBC Hgb Hct MCV MCH MCHC RDW Plt Count MPV Neut # (Auto) Lymph # (Auto) Mcdonough # (Auto) Eos # (Auto) Baso # (Auto) Absolute Nucleated RBC Nucleated RBC % Sodium Potassium Chloride Carbon Dioxide Anion Gap BUN Creatinine Estimated GFR (MDRD) Glucose Lactic Acid 1.7 Calcium Magnesium Total Bilirubin AST ALT Alkaline Phosphatase Troponin I High Sens 21.2 H* Total Protein Albumin Globulin Albumin/Globulin Ratio Nasal Adenovirus (PCR) NOT DETECTED Nasal B. parapertussis DNA (PCR) NOT DETECTED Nasal Coronavir 229E PCR NOT DETECTED Nasal Coronavir HKU1 PCR NOT DETECTED Nasal Coronavir NL63 PCR NOT DETECTED Nasal Coronavir OC43 PCR NOT DETECTED Nasal Enterovir/Rhinovir PCR NOT DETECTED Nasal Influenza B PCR NOT DETECTED Nasal Influenza A PCR NOT DETECTED Nasal Parainfluen 1 PCR NOT DETECTED Nasal Parainfluen 2 PCR NOT DETECTED Nasal Parainfluen 3 PCR NOT DETECTED Nasal Parainfluen 4 PCR NOT DETECTED Nasal RSV (PCR) NOT DETECTED Nasal B.pertussis DNA PCR NOT DETECTED Nasal C.pneumoniae (PCR) NOT DETECTED Nish Human Metapneumo PCR NOT DETECTED Nasal M.pneumoniae (PCR) NOT DETECTED Nasal SARS-CoV-2 (PCR) NOT DETECTED PD MEDICAL DECISION MAKING - ED course ED course: 70-year-old woman with nausea vomiting and diarrhea to the point that it has again caused acute kidney injury with a creatinine of 2.9. She was also initially hypotensive and tachycardic which improved significantly with the administration of IV fluids. Spoke with Dr. Ferraro for admission. Departure - Departure Disposition: 66 [facility] DC/Xfer Clinical Impression: CHRISTY (acute kidney injury), Diabetes, Nausea vomiting and diarrhea Condition: Serious
[2020-05-21 09:34] LABS: BASOPHILS % (AUTO) 0.5 %; EOSINOPHILS # (AUTO) 0.3 10^3/uL (0.0-0.7); EOSINOPHILS % (AUTO) 3.7 %; HGB - HEMOGLOBIN 15.8 g/dL (12.0-16.0); LYMPHOCYTES % (AUTO) 23.9 %; MEAN CORPUSCULAR HEMOGLOBIN 29.8 pg (27.0-31.0); MEAN CORPUSCULAR HGB CONC 33.5 g/dL (32.0-36.0); MEAN CORPUSCULAR VOLUME 88.7 fL (81.0-99.0); MONOCYTES # (AUTO) 0.9 10^3/uL (0.0-1.0); MONOCYTES % (AUTO) 10.8 %; NEUTROPHILS % (AUTO) 60.9 %; PLT - PLATELET COUNT 408 10^3/uL (130-450); RED BLOOD COUNT 5.31 10^6/uL (4.20-5.40); RED CELL DISTRIBUTION WIDTH 13.6 % (12.0-15.0); WHITE BLOOD COUNT 8.3 x10^3/uL (4.8-10.8)
[2020-05-21 09:40] LABS: BILIRUBIN,TOTAL 1.2 mg/dL (0.2-1.0); CALCIUM 8.8 mg/dL (8.5-10.3); CREATININE 2.9 mg/dL (0.4-1.0); MAGNESIUM 1.7 mg/dL (1.7-2.8)
[2020-05-21 10:34] LABS: C. PNEUMONIAE- RESP PCR PANEL NOT DETECTED
[2020-05-21] MEDS ORDERED: ONDANSETRON 4 MG/2 ML VIAL IVP PRN (11:02)
[2020-05-21] MEDS ORDERED: SODIUM CHLORIDE FLUSH 0.9% 10 ML SYRINGE IVP PRN (11:02)
[2020-05-21] MEDS ORDERED: ACETAMINOPHEN 325 MG TABLET PO PRN (11:02)
[2020-05-21] MEDS ORDERED: METOCLOPRAMIDE 10 MG/2 ML VIAL IVP PRN (11:08)
--- NOTE | 2020-05-21 11:41 | CT Report ---
PROCEDURE: Abdomen/Pelvis WO INDICATIONS: Recurrent N/V/D TECHNIQUE: Noncontrast 5 mm thick sections acquired from the diaphragms to the symphysis. 5 mm coronal and sagi ttal reformats were then performed. For radiation dose reduction, the following was used: automated exposure control, adjustment of mA and/or kV according to patient size. COMPARISON: None. FINDINGS: Image quality: Excellent. ABDOMEN: Lung bases: Lung bases are clear. Heart size is enlarged. There is severe calcification of the devin nary vasculature. Solid organs: Liver and spleen are normal in size. Gallbladder is within normal limits Pancreas is normal in contours. No adrenal nodules. Kidneys are normal in size, without hydronephrosis or neph rolithiasis. Peritoneum and bowel: Unenhanced bowel loops demonstrate normal wall thickness and caliber. Ligament of Treitz appears to be right-sided oriented in the midline. There is an anastomotic staple line wit hin the right hemiabdomen. No free fluid or air. Nodes and vessels: No retroperitoneal or mesenteric adenopathy by size criteria. Aorta and inferior vena cava are normal in caliber. Superior mesenteric artery and vein have an altered orientation re lative to normal. Miscellaneous: No ventral hernias. PELVIS: Genitourinary: Bladder wall thickness is normal. Miscellaneous: No inguinal hernias or adenopathy. Bones: No suspicious bony lesions. No vertebral body compression fractures. IMPRESSION: 1. No acute process. 2. Coronary artery disease. 3. Post surgical sequelae. 4. 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 Reviewed by: Matt Mccray MD on 05/21/2020 11:40 AM [facility] Approved by: Matt Mccray MD on 05/21/2020 11:40 AM [facility] Station ID: [id number]
[2020-05-21] MEDS: INSULIN ASPART 300 UNIT/3 ML PEN SUBQ SCH ×3 (13:31→20:41)
[2020-05-21] MEDS: DEXTROSE 5%-0.9% NACL 1,000 ML IV SCH ×2 (14:54→22:34)
[2020-05-21] MEDS: LEVOTHYROXINE 75 MCG TABLET PO SCH (15:39)
[2020-05-21] MEDS: SODIUM CHLORIDE FLUSH 0.9% 10 ML SYRINGE IVP SCH ×2 (17:16→23:58)
--- NOTE | 2020-05-21 20:24 | HISTORY & PHYSICAL EXAMINATION ---
DATE OF SERVICE: 05/21/2020 Physician: Munira Ferraro MD HISTORY OF PRESENT ILLNESS: This is a 70-year-old white female who has a history of bowel obstruction, for which she needed a partial colectomy 20 years ago. Since that time, she has had problems with recurrent diarrhea. She never had an ostomy. She has a history of diabetes. She was admitted here last month with diarrhea causing dehydration and acute kidney injury. Her creatinine runs about 0.9 and 1 month ago, it was as high as 3.5. She states that she went home and recovered from that episode of dehydration and diarrhea and was okay for a few weeks, and then suddenly in the last 5 days has had nausea and vomiting as well as diarrhea again. She describes 10 watery bowel movements a day. She came to the ER because of feeling weak with these after 5 days. The vomiting was treated with Zofran, and she has had no more vomiting since in the ER. She started to feel dizzy and was hypotensive in the ER with blood pressure of 86/60. She is still hypotensive despite 1 liter of IV fluids. An EKG was done because of the persistent hypotension and this shows an abnormal EKG with significant ST depressions in the infero-lateral leads. Therefore, a troponin was done. She was tachycardic at a rate of 116 in sinus rhythm. Once again labs show she has CHRISTY with a creatinine of 2.9. The patient is being admitted for management of dehydration from nausea, vomiting and diarrhea causing hypotension, tachycardia and CHRISTY. In addition, the hypotension may be related to abnormal EKG and a mildly elevated troponin of 21. PAST MEDICAL HISTORY: Partial colectomy 20 years ago because of bowel obstruction, diabetes, HTN, hypothyroidism, GERD and hiatal hernia, coronary artery disease with a stent, recurrent episodes of diarrhea of unknown etiology. SOCIAL HISTORY: The patient is a nonsmoker, who never smoked, drinks no alcohol, has no drug use history. She lives with her . FAMILY HISTORY: No inherited diseases. ALLERGIES: 1. LESCOL. 2. PRILOSEC. 3. PENICILLIN. 4. SULFA. 5. LOTENSIN BERNARDO INHIBITOR. MEDICATIONS: 1. Amlodipine 5 mg in the morning and 2.5 mg at night. 2. Atorvastatin 40 mg every night. 3. Glipizide 10 mg b.i.d. 4. Victoza 1.8 mg subcutaneously daily. 5. Imodium p.r.n. 6. Losartan with HCTZ 50/12.5 mg daily. 7. Toprol-XL 100 mg 1.5 tablets daily. 8. Prilosec 20 mg daily. 9. Zofran sublingual p.r.n., which is usually daily. 10. Xalatan eyedrops on the left eye daily. 11. Synthroid 175 mcg daily. REVIEW OF SYSTEMS: She has had no fever, she has had no sick contacts, her has eaten the same food and he does not have nausea, vomiting, diarrhea. She has been keeping adequate isolation during the COVID pandemic. She has had no recent antibiotics. As she was being brought from the ER to her room in the hospital, she got up to go to the bathroom and she had near-syncope and the nurse had to catch her, she was briefly not responsive, the nurse laid her down, and then the patient awoke and had a blood pressure of 87 systolic. A comprehensive review of systems was performed and the pertinent positives are listed, the rest are negative. PHYSICAL EXAM GENERAL: Obese, middle-aged white female. She appears younger than her age. VITAL SIGNS: Blood pressure is now 94/48 with a pulse of 90 in sinus rhythm. She is afebrile. Room air saturation is 98%. HEENT: Unremarkable with moist oral mucosa. NECK: No JVD or carotid bruits. CHEST: Clear. HEART: Regular. Normal heart sounds with a 2/6 systolic murmur heard at the base. There is no gallop. BREASTS: Large. ABDOMEN: Mildly distended versus obese with pannus. It is soft, nontender, has normal bowel sounds. EXTREMITIES: No clubbing, cyanosis or edema. NEUROLOGIC: Grossly intact. LABORATORY DATA: Sodium 133, potassium 3.5, anion gap 17, BUN 48, creatinine 2.9, glucose 230. Lactic acid normal at 1.7, bilirubin 1.2. Normal liver tests. Troponins first one was 21. The next one was 18. White blood count 8.3, hemoglobin 15.8, platelet count 408. No INR was done. Her respiratory panel is COVID negative, and her C. difficile stool test is negative. IMAGING: Abdomen and pelvis CT was done and showed no acute process, visible was coronary artery disease, postsurgical sequelae of the abdomen, and possible upper GI malrotation without evidence of acute colitis. EKG: Sinus tachycardia at a rate of 111, 2-[address] depressions, some are downsloping, in leads I, II, III, aVF, V2 through V6. There is no old EKG available for comparison. IMPRESSION/DIAGNOSES 1. Hypotension 2. Near syncope here. 3. Tachycardia. 4. Nausea, vomiting, diarrhea. 5. Acute kidney injury. 6. Dehydration. 7. Hyponatremia. 8. Abnormal EKG. 9. Elevated troponin. 10. Heart murmur. 11. Diabetes mellitus. 12. Partial colectomy. 13. History of hypertension. 14. Hypothyroidism. PLAN: Place the patient on telemetry, inpatient status of the Hospitalist. Start IV hydration. Maintain bedrest because of the significant hypotension that is persisting and her near syncope. Continue with telemetry. Follow electrolytes. Give bowel rest, starting clear liquids and advance as tolerated. Follow her BMP daily. Cycle troponins. Obtain an Echo to evaluate both the abnormal EKG and the heart murmur. Begin a sliding scale insulin protocol for coverage. Hold her blood pressure medications. Continue with her thyroid medications. DEEP VENOUS THROMBOSIS PROPHYLAXIS: SAGRARIO stockings. CODE STATUS: FULL CODE. ATTESTATION: Patient is expected to be discharged or transferred to another facility within 96 hours: Yes. cc: DIVINE TD: 05/21/2020 19:06 MTDD
[2020-05-21] MEDS: LATANOPROST 0.005% OPHTH DROPS LEFTEYE SCH (20:46)
[2020-05-22] MEDS: LOPERAMIDE 2 MG CAPSULE PO PRN ×3 (04:26→16:44)
[2020-05-22] MEDS: MIN OIL/DIMETHICON/COCONUT OIL 92 GM TUBE TOP PRN ×2 (04:26→23:45)
[2020-05-22 05:21] LABS: BASOPHILS % (AUTO) 0.5 %; EOSINOPHILS # (AUTO) 0.3 10^3/uL (0.0-0.7); EOSINOPHILS % (AUTO) 5.3 %; HGB - HEMOGLOBIN 11.8 g/dL (12.0-16.0); LYMPHOCYTES # (AUTO) 1.3 10^3/uL (1.5-3.5); LYMPHOCYTES % (AUTO) 22.8 %; MEAN CORPUSCULAR HEMOGLOBIN 30.3 pg (27.0-31.0); MEAN CORPUSCULAR HGB CONC 33.1 g/dL (32.0-36.0); MEAN CORPUSCULAR VOLUME 91.3 fL (81.0-99.0); MONOCYTES # (AUTO) 0.7 10^3/uL (0.0-1.0); MONOCYTES % (AUTO) 11.6 %; NEUTROPHILS # (AUTO) 3.5 10^3/uL (1.5-6.6); NEUTROPHILS % (AUTO) 59.5 %; PLT - PLATELET COUNT 230 10^3/uL (130-450); RED CELL DISTRIBUTION WIDTH 13.8 % (12.0-15.0); WHITE BLOOD COUNT 5.8 x10^3/uL (4.8-10.8)
[2020-05-22 05:27] LABS: CALCIUM 7.2 mg/dL (8.5-10.3); CREATININE 1.3 mg/dL (0.4-1.0)
[2020-05-22] MEDS: LEVOTHYROXINE 75 MCG TABLET PO SCH (06:08)
[2020-05-22] MEDS: LEVOTHYROXINE 100 MCG TABLET PO SCH (06:08)
[2020-05-22] MEDS: DEXTROSE 5%-0.9% NACL 1,000 ML IV SCH ×3 (06:08→22:45)
[2020-05-22] MEDS: INSULIN ASPART 300 UNIT/3 ML PEN SUBQ SCH ×4 (08:03→20:33)
[2020-05-22] MEDS: SODIUM CHLORIDE FLUSH 0.9% 10 ML SYRINGE IVP SCH ×3 (08:25→23:45)
[2020-05-22] MEDS: FAMOTIDINE 20 MG TABLET PO SCH ×2 (08:25→20:32)
[2020-05-22] MEDS: LATANOPROST 0.005% OPHTH DROPS LEFTEYE SCH ×2 (08:26→20:32)
[2020-05-22 09:11] LABS: BILIRUBIN,URINE NEGATIVE (NEGATIVE); GLUCOSE, URINE (UA) NEGATIVE (NEGATIVE); KETONES,URINE (UA) NEGATIVE (NEGATIVE); LEUKOCYTE ESTERASE, URINE LARGE (NEGATIVE); NITRITE,URINE NEGATIVE (NEGATIVE); OCCULT BLOOD,URINE TRACE-INTA (NEGATIVE); PROTEIN,URINE NEGATIVE (NEGATIVE); UROBILINOGEN,URINE 0.2 (NORMAL) E.U./dL (NORMAL)
[2020-05-22 09:12] LABS: CLARITY,URINE SL. CLOUDY (CLEAR)
[2020-05-22 09:16] LABS: BACTERIA,URINE Rare /HPF (None Seen); SQUAMOUS EPITHELIAL CELL,UR RARE Squamous (<= Few)
[2020-05-22] MEDS: POTASSIUM CHLOR 10 MEQ/100 ML 10 MEQ/100 ML BAG IV SCH ×4 (09:29→13:21)
[2020-05-22 10:14] LABS: HEMOGLOBIN A1c% 6.9 % (4.27-6.07)
--- NOTE | 2020-05-22 18:08 | PROVIDER PROGRESS NOTE ---
Assessment/Plan - Problem List (1) CHRISTY (acute kidney injury) Assessment/Plan: She has had some improvement in creatinine since getting IV hydration. 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 Continue to avoid nephrotoxins. Continue with IV fluids. Follow BMP daily (2) Dehydration Assessment/Plan: Improving. Continue with IV hydration until she has a more stable creatinine. Follow BMP daily (3) Orthostatic hypotension Assessment/Plan: Improved after getting 1-1/2 days of IV fluids. We will check orthostatics just once daily but now she will have her complete bedrest order canceled, she can be out of bed with assistance and have a bedside commode (4) Nausea vomiting and diarrhea Assessment/Plan: The abdomen pelvis CT was unremarkable. Perhaps this is another bout of gastroenteritis for her however the is not sick. She reports that this had happened multiple times, with no clear reason ever since having partial colectomy. Outpatient GI evaluation is advised. She should also have Zofran translating well at home available to take so that she does not progress to the stage of being so dehydrated. Her nausea and vomiting have stopped therefore will accelerate advance her diet. She is still having diarrhea, needs IV fluid replacement. (5) Hypokalemia Assessment/Plan: Related to losses in vomiting and diarrhea. Replace p.o. and IV. Follow BMP daily (6) Hypomagnesemia Assessment/Plan: Replace. Follow magnesium intermittent (7) Diabetes Assessment/Plan: As her diet advances, we will start carb controlled diet and sliding scale insulin coverage (8) Anemia Assessment/Plan: Partly this is hemodilution all as she is requiring IV fluids. We will check B12, folate levels and iron stores and replace if low (9) Heart murmur Assessment/Plan: She had a loud heart murmur yesterday, it is nearly gone today. The Echo was done and it showed a small, volume depleted heart with hyperdynamic LV contractility, she probably had an outflow tract murmur when she was dehydrated and heart was even more hyperdynamic yesterday. (10) Hx of essential hypertension Assessment/Plan: Her blood pressure meds are on hold as she was extremely hypotensive yesterday, is normotensive today. These can probably be resumed one by one starting tomorrow (11) Hypothyroidism Assessment/Plan: She is on her home thyroid dose. - Current Meds Current Meds: Current Medications Generic Name Dose Route Start Last Admin Trade Name Monae PRN Reason Stop Dose Admin Famotidine 20 mg 05/22/20 09:00 05/22/20 08:25 Famotidine 20 Mg Tablet PO 20 mg BID RUBINA Administration Dextrose/Sodium Chloride 1,000 mls @ 125 mls/hr 05/21/20 12:00 05/22/20 13:49 D5ns IV 125 mls/hr .Q8H RUBINA Administration Insulin Aspart 1 - 5 unit 05/21/20 12:00 05/22/20 16:44 Insulin Aspart 300 Unit/3 Ml Pen SUBQ Not Given 0800,1200,1700,2100 [facility] Protocol Latanoprost 1 drops 05/21/20 12:00 05/22/20 08:26 Latanoprost 0.005% Ophth Drops LEFTEYE Not Given DAILY RUBINA Levothyroxine Sodium 100 mcg 05/22/20 07:00 05/22/20 06:08 Levothyroxine 100 Mcg Tablet PO 100 mcg QDAC RUBINA Administration Levothyroxine Sodium 75 mcg 05/21/20 15:30 05/22/20 06:08 Levothyroxine 75 Mcg Tablet PO 75 mcg QDAC RUBINA Administration Loperamide HCl 2 mg 05/22/20 01:22 05/22/20 16:44 Loperamide 2 Mg Capsule PO 2 mg QID PRN Administration Diarrhea Mineral Oil 1 applic 05/21/20 23:25 05/22/20 04:26 Min Oil/Dimethicon/Coconut Oil 92 Gm Tube TOP 1 applic PRN PRN Administration Skin Care Sodium Chloride 10 ml 05/21/20 17:00 05/22/20 16:44 Sodium Chloride Flush 0.9% 10 Ml Syringe IVP Not Given 0100,0900,1700 [facility] - Lab Result Fish Bone Diagrams: 05/22/20 04:56 05/22/20 04:56 - Additional Planning My Orders: My Active Orders 05/21/20 23:25 Min Oil/Dimeth/Coconut Oil Crm [Cavilon] 1 applic TOP PRN PRN 05/22/20 07:00 Levothyroxine [Synthroid] 100 mcg PO QDAC 05/22/20 08:00 Echo Transthoracic Complete [ECHO] Routine 05/22/20 09:00 Famotidine [Pepcid] 20 mg PO BID 05/22/20 15:06 Orthostatic [Vital Signs - Orthostatic] [RC] DAILY 05/23/20 Breakfast DIET [Soft (Low Fiber) Diet] [DIET] Subjective - Subjective Patient Reports: Feeling Better, Diarrhea Objective Vital Signs: Vital Signs - 24 hr 05/21/20 05/21/20 05/21/20 20:00 20:55 23:55 Temperature 36.5 C 36.5 C 36.8 C Heart Rate 92 Heart Rate [ 91 87 Brachial] Respiratory 18 18 18 Rate Blood Pressure 110/97 H [Left Brachial artery] Blood Pressure 92/42 L [Right Brachial artery] O2 Saturation 94 94 94 05/22/20 05/22/20 05/22/20 04:26 08:56 12:56 Temperature 36.8 C 37.1 C 37.1 C Heart Rate Heart Rate [ 91 91 94 Brachial] Respiratory 18 16 16 Rate Blood Pressure 122/51 L [Left Brachial artery] Blood Pressure 102/47 L 129/58 L [Right Brachial artery] O2 Saturation 98 98 99 05/22/20 16:55 Temperature 36.7 C Heart Rate Heart Rate [ 89 Brachial] Respiratory 20 Rate Blood Pressure [Left Brachial artery] Blood Pressure 135/57 H [Right Brachial artery] O2 Saturation 99 Oxygen O2 Source Room air I&O (Last 24 Hrs): Intake and Output Totals x24h 05/20/20 05/21/20 05/22/20 23:59 23:59 23:59 Intake Total 4931.333 3626.250 Output Total 800 Balance 4931.333 2826.250 General: Alert, Oriented x3 HEENT: Mucous membr. moist/pink Neck: Supple, No JVD Neuro: Alert, Non Focal Cardiovascular: Regular rate, No murmurs - Results Results: Laboratory Results WBC 5.8 x10^3/uL (4.8-10.8) 05/22/20 04:56 RBC 3.90 10^6/uL (4.20-5.40) L 05/22/20 04:56 Hgb 11.8 g/dL (12.0-16.0) L 05/22/20 04:56 Hct 35.6 % (37.0-47.0) L 05/22/20 04:56 MCV 91.3 fL (81.0-99.0) 05/22/20 04:56 MCH 30.3 pg (27.0-31.0) 05/22/20 04:56 MCHC 33.1 g/dL (32.0-36.0) 05/22/20 04:56 RDW 13.8 % (12.0-15.0) 05/22/20 04:56 Plt Count 230 10^3/uL (130-450) 05/22/20 04:56 MPV 10.0 fL (7.9-10.8) 05/22/20 04:56 Neut # (Auto) 3.5 10^3/uL (1.5-6.6) 05/22/20 04:56 Lymph # (Auto) 1.3 10^3/uL (1.5-3.5) L 05/22/20 04:56 [place] # (Auto) 0.7 10^3/uL (0.0-1.0) 05/22/20 04:56 Eos # (Auto) 0.3 10^3/uL (0.0-0.7) 05/22/20 04:56 Baso # (Auto) 0.0 10^3/uL (0.0-0.1) 05/22/20 04:56 Absolute Nucleated RBC 0.00 x10^3/uL 05/22/20 04:56 Nucleated RBC % 0.0 /100WBC 05/22/20 04:56 Sodium 136 mmol/L (135-145) 05/22/20 04:56 Potassium 2.7 mmol/L (3.5-5.0) L 05/22/20 04:56 Chloride 103 mmol/L (101-111) 05/22/20 04:56 Carbon Dioxide 24 mmol/L (21-32) 05/22/20 04:56 Anion Gap 9.0 (6-13) 05/22/20 04:56 BUN 36 mg/dL (6-20) H 05/22/20 04:56 Creatinine 1.3 mg/dL (0.4-1.0) H 05/22/20 04:56 Estimated GFR (MDRD) 41 (>89) L 05/22/20 04:56 Glucose 159 mg/dL (70-100) H 05/22/20 04:56 POC Whole Bld Glucose 135 mg/dL (70 - 100) H 05/22/20 16:33 Estimat Average Glucose 151 mg/dL (70-100) H 05/22/20 04:56 Hemoglobin A1c % 6.9 % (4.27-6.07) H 05/22/20 04:56 Lactic Acid 1.7 mmol/L (0.5-2.2) 05/21/20 09:37 Calcium 7.2 mg/dL (8.5-10.3) L 05/22/20 04:56 Magnesium 1.7 mg/dL (1.7-2.8) 05/21/20 09:20 Total Bilirubin 1.2 mg/dL (0.2-1.0) H 05/21/20 09:20 AST 16 IU/L (10-42) 05/21/20 09:20 ALT 21 IU/L (10-60) 05/21/20 09:20 Alkaline Phosphatase 71 IU/L (42-121) 05/21/20 09:20 Troponin I High Sens 21.9 ng/L (2.3-14.8) H* 05/21/20 21:18 Total Protein 8.0 g/dL (6.7-8.2) 05/21/20 09:20 Albumin 4.0 g/dL (3.2-5.5) 05/21/20 09:20 Globulin 4.0 g/dL (2.1-4.2) 05/21/20 09:20 Albumin/Globulin Ratio 1.0 (1.0-2.2) 05/21/20 09:20 Urine Color YELLOW 05/21/20 08:50 Urine Clarity SL. CLOUDY (CLEAR) 05/21/20 08:50 Urine pH 6.0 PH (5.0-7.5) 05/21/20 08:50 Ur Specific [place] 1.010 (1.002-1.030) 05/21/20 08:50 Urine Protein NEGATIVE mg/dL (NEGATIVE) 05/21/20 08:50 Urine Glucose (UA) NEGATIVE mg/dL (NEGATIVE) 05/21/20 08:50 Urine Ketones NEGATIVE mg/dL (NEGATIVE) 05/21/20 08:50 Urine Occult Blood TRACE-INTA (NEGATIVE) 05/21/20 08:50 Urine Nitrite NEGATIVE (NEGATIVE) 05/21/20 08:50 Urine Bilirubin NEGATIVE (NEGATIVE) 05/21/20 08:50 Urine Urobilinogen 0.2 (NORMAL) E.U./dL (NORMAL) 05/21/20 08:50 Ur Leukocyte Esterase LARGE (NEGATIVE) H 05/21/20 08:50 Urine RBC 6-10 /HPF (0-5) H 05/21/20 08:50 Urine WBC >25 /HPF (0-5) H 05/21/20 08:50 Ur Squamous Epith Cells RARE Squamous (<= Few) 05/21/20 08:50 Urine Bacteria Rare /HPF (None Seen) 05/21/20 08:50 Urine Culture Comments INDICATED 05/21/20 08:50 Nasal Adenovirus (PCR) NOT DETECTED 05/21/20 09:40 Nasal B. parapertussis DNA (PCR) NOT DETECTED 05/21/20 09:40 Nasal Coronavir 229E PCR NOT DETECTED 05/21/20 09:40 Nasal Coronavir HKU1 PCR NOT DETECTED 05/21/20 09:40 Nasal Coronavir NL63 PCR NOT DETECTED 05/21/20 09:40 Nasal Coronavir OC43 PCR NOT DETECTED 05/21/20 09:40 Nasal Enterovir/Rhinovir PCR NOT DETECTED 05/21/20 09:40 Nasal Influenza B PCR NOT DETECTED 05/21/20 09:40 Nasal Influenza A PCR NOT DETECTED 05/21/20 09:40 Nasal Parainfluen 1 PCR NOT DETECTED 05/21/20 09:40 Nasal Parainfluen 2 PCR NOT DETECTED 05/21/20 09:40 Nasal Parainfluen 3 PCR NOT DETECTED 05/21/20 09:40 Nasal Parainfluen 4 PCR NOT DETECTED 05/21/20 09:40 Nasal RSV (PCR) NOT DETECTED 05/21/20 09:40 Nasal B.pertussis DNA PCR NOT DETECTED 05/21/20 09:40 Nasal C.pneumoniae (PCR) NOT DETECTED 05/21/20 09:40 Nish Human Metapneumo PCR NOT DETECTED 05/21/20 09:40 Nasal M.pneumoniae (PCR) NOT DETECTED 05/21/20 09:40 Nasal SARS-CoV-2 (PCR) NOT DETECTED 05/21/20 09:40 Stl C. diff Tox B Gene NEGATIVE (NEGATIVE) 05/21/20 13:20 - Procedures Procedures: Procedures CLOSED ENDOSCOPIC BIOPSY OF LARGE INTESTINE (11/02/12) ENDO RECTUM POLYPECTOMY (11/02/12)
[2020-05-23] MEDS: MIN OIL/DIMETHICON/COCONUT OIL 92 GM TUBE TOP PRN ×2 (04:07→05:18)
[2020-05-23] MEDS: LOPERAMIDE 2 MG CAPSULE PO PRN ×3 (05:13→14:42)
[2020-05-23] MEDS: LEVOTHYROXINE 75 MCG TABLET PO SCH (05:18)
[2020-05-23] MEDS: LEVOTHYROXINE 100 MCG TABLET PO SCH (05:19)
[2020-05-23 05:33] LABS: BASOPHILS % (AUTO) 0.6 %; EOSINOPHILS # (AUTO) 0.6 10^3/uL (0.0-0.7); HGB - HEMOGLOBIN 12.3 g/dL (12.0-16.0); LYMPHOCYTES # (AUTO) 1.5 10^3/uL (1.5-3.5); LYMPHOCYTES % (AUTO) 21.7 %; MEAN CORPUSCULAR HEMOGLOBIN 29.1 pg (27.0-31.0); MEAN CORPUSCULAR HGB CONC 31.5 g/dL (32.0-36.0); MEAN CORPUSCULAR VOLUME 92.7 fL (81.0-99.0); MEAN PLATELET VOLUME 9.9 fL (7.9-10.8); MONOCYTES # (AUTO) 0.6 10^3/uL (0.0-1.0); MONOCYTES % (AUTO) 8.5 %; NEUTROPHILS # (AUTO) 4.3 10^3/uL (1.5-6.6); NEUTROPHILS % (AUTO) 59.9 %; PLT - PLATELET COUNT 245 10^3/uL (130-450); RED BLOOD COUNT 4.22 10^6/uL (4.20-5.40); RED CELL DISTRIBUTION WIDTH 13.9 % (12.0-15.0); WHITE BLOOD COUNT 7.1 x10^3/uL (4.8-10.8)
[2020-05-23 05:47] LABS: CALCIUM 8.2 mg/dL (8.5-10.3); CREATININE 0.8 mg/dL (0.4-1.0)
[2020-05-23] MEDS: DEXTROSE 5%-0.9% NACL 1,000 ML IV SCH (05:53)
[2020-05-23] MEDS: INSULIN ASPART 300 UNIT/3 ML PEN SUBQ SCH ×2 (08:21→12:00)
[2020-05-23] MEDS ORDERED: POTASSIUM CHLORIDE 20 MEQ/15 ML UDC PO ONE (09:00)
[2020-05-23] MEDS ORDERED: D5.45NS W/20 MEQ KCL 1,000 ML IV SCH (09:00)
[2020-05-23] MEDS ORDERED: LIDO GARGLE 30 ML BOTTLE ONE (09:15)
[2020-05-23] MEDS: FAMOTIDINE 20 MG TABLET PO SCH (09:27)
[2020-05-23] MEDS: LATANOPROST 0.005% OPHTH DROPS LEFTEYE SCH (09:27)
[2020-05-23] MEDS: SODIUM CHLORIDE FLUSH 0.9% 10 ML SYRINGE IVP SCH (09:28)
--- NOTE | 2020-05-23 14:38 | Discharge Plan ---
Discharge Plan Problem Reviewed?: Yes Disposition: Home, Self Care Condition: Stable Diet: Diabetic Activity Restrictions: Activity as Tolerated Shower Restrictions: No (fall precaution) Instruction Topics: Gastritis, Dehydration, High Blood Pressure, Injury Acute Kidney Dc, Hypotension Dc, ED Vomiting Diarrhea Nonspecific Ad Health Concerns: dehydration/hypotension/CHRISTY, nausea/vomiting/diarrhea Plan of Treatment: after hydration, your kidney function resume in the normal arrange, your nausea or vomiting are controlled, your C.diff test is negative, your blood pressure is good control as well. You had significant dehydration, hypotension, and slightly low sodium level at the admission, your home blood pressure Losartan/HCTZ is hold now, resume your other home medication, keep hydration at home, you may followup with your PCP in one week. Your C.diff test is negative, your nausea or vomiting are controlled, take Imodium as needed, keep hydration at home, you may followup with your PCP in one week. you likely had virus gastroenteritis at the admission. Care Goals: stabilization and improvement of your medical condition Assessment: discussed the care plan with you, answered your questions, you understood and agreed. Additional Instructions or Follow Up instructions: you may followup with your PCP in one week, have blood work to monitor potassium level and kidney function check. Should your symptoms return or worsen, you may present ER or call 911 for help. No Smoking: If you smoke, Please STOP! Call for help. Follow-up with: Tashia Bailey PA-C [Primary Care Provider] -
[2020-05-23] MEDS ORDERED: POTASSIUM CHLORIDE 20 MEQ TABLET PO ONE (15:05)
[2020-05-23] MEDS ORDERED: SACCHAROMYCES BOULARDII 250 MG CAPSULE PO SCH (15:06)
--- NOTE | 2020-05-23 15:08 | DISCHARGE SUMMARY ---
Discharge Summary Admit Date: 05/21/20 Discharge Date: 05/23/20 Discharging Provider: Andrea Morales Primary Care Provider: Dr. Tashia Bailey Condition at Discharge: Stable Discharge Disposition: 01 Home, Self Care Discharge Facility Name: home - DIAGNOSES Discharge Diagnoses with Status of Each Condition: (1) CHRISTY (acute kidney injury) Resolved. After hydration in the hospital, patient creatinine is 0.8. (2) Dehydration Resolved, advise pt keep hydration in the home (3) Orthostatic hypotension Resolved. after hydration, And hold patient's home blood pressure medication, patient's orthostatic hypotension is resolved. This is likely combination of patient's dehydration and overmedicated with blood pressure medication. Hold home losartan with HCTZ which can cause pt dehydration and lower sodium, continue home blood pressure medicine Amlodipine and metoprolol, Follow-up with patient PCP continue management (4) Nausea vomiting and diarrhea Nausea and vomiting was resolved, diarrhea is in the controlled, patient has history of recurrent diarrhea, C. difficile test is negative. Imodium as needed for patient. Patient was likely to have virus gastroenteritis when she was in the admission to cause her above symptoms (5) Hypokalemia Replaced. Follow up with PCP to have blood test to continue management. (6) Hypomagnesemia Resolved (7) Diabetes A1c 6.9, resume patient home diabetic medications, Follow-up her PCP to manage (8) Anemia Stable (9) Heart murmur Echo show unremarkable (10) Hx of essential hypertension Stable. After the patient had good hydration, patient blood pressure is in good control as well. Patient's hypotension in the admission, it is likely combination dehydration and overmedicated patient home blood pressure medications. Hold home losartan with HCTZ which can cause pt dehydration and lower sodium, continue home blood pressure medicine Amlodipine and metoprolol, Follow-up with patient PCP continue management (11) Hypothyroidism Stable - HPI History of Present Illness: This is a 70 years old female with past medical medical history of diabetes, bowel obstruction with partial colectomy, chronic recurrent diarrhea since she has partial colectomy. She was admitted here last month with diarrhea causing dehydration and acute kidney injury. Patient report in last of 5 days she had nausea, vomiting as well as diarrhea again. She described 10 time watery bowel movement per day. She came to the ER because feeling of weakness, dizziness and that she was found to have hypotension in the ER with a blood pressure of 86/60, Her creatinine was 2.9.Patient is being admitted for management of dehydration, diarrhea, hypotension, tachycardia and CHRISTY. - HOSPITAL COURSE Hospital Course: Patient was admitted for nausea, vomiting, dehydration, CHRISTY, And hypotension. After the patient has bowel rest, intravenous IV fluids for hydration, antiemesis as needed, patient's CHRISTY was resolved, Patient become hemodynamic stable, patient blood pressure then become in good control. Patient was likely to have virus gastroenteritis to cause her nausea and vomiting, and diarrhea, since patient has a chronic diarrhea symptoms after she had partial colectomy, Patient's C. difficile was negative. Patient was discharge as hemodynamic stable condition. - ALLERGIES Allergies/Adverse Reactions: Allergies Allergy/AdvReac Type Severity Reaction Status Date / Time fluvastatin [From Lescol] Allergy Unknown Verified 05/21/20 09:12 omeprazole [From Prilosec] Allergy Unknown Verified 05/21/20 09:12 Penicillins Allergy Nausea Verified 05/21/20 09:12 Sulfa (Sulfonamide Allergy not known Verified 05/21/20 09:12 Antibiotics) benazepril [From Lotensin] AdvReac Respiratory Verified 05/21/20 09:12 - MEDICATIONS Home Medications: Ambulatory Orders Medication Instructions Recorded Confirmed Amlodipine Besylate [Norvasc] 2.5 mg PO QPM 04/07/20 05/21/20 Amlodipine Besylate [Norvasc] 5 mg PO DAILY 04/07/20 05/21/20 Atorvastatin [Lipitor] 40 mg PO QPM 04/07/20 05/21/20 Latanoprost 0.005% Ophth Drops 1 drops LEFTEYE DAILY 04/07/20 05/21/20 [Xalatan Ophth Drops] Levothyroxine Sodium [Synthroid] 175 mcg PO QDAC 04/07/20 05/21/20 Liraglutide [Victoza 2-Karel] 1.8 mg SUBQ DAILY 04/07/20 05/21/20 Metoprolol Succinate [Toprol Xl] 150 mg PO DAILY 04/07/20 05/21/20 Omeprazole [PriLOSEC] 20 mg PO DAILY 04/07/20 05/21/20 Ondansetron Odt [Zofran Odt] 4 mg PO DAILY 04/07/20 05/21/20 glipiZIDE [Glipizide] 10 mg PO BID 04/07/20 05/21/20 Loperamide [Imodium] 2 mg PO QID PRN #6 capsule 04/08/20 05/21/20 - PHYSICAL EXAM AT DISCHARGE General Appearance: positive: No acute distress, Alert. negative: Lethargic Eyes Bilateral: positive: Normal inspection, PERRL, No lid inflammation ENT: positive: ENT inspection nml, No signs of dehydration. negative: Purulent nasal drainage Neck: positive: Nml inspection, Trachea midline. negative: Thyromegaly, Tracheal deviation Respiratory: positive: Chest non-tender, No respiratory distress, Breath sounds nml. negative: Wheezes, Rales, Rhonchi Cardiovascular: positive: Regular rate & rhythm, No murmur. negative: Tachycardia, Bradycardia, Systolic murmur, Diastolic murmur Peripheral Pulses: positive: 2+ Abdomen: positive: Non-tender, Nml bowel sounds, No distention. negative: Tenderness, Guarding, Rebound Back: positive: Nml inspection. negative: CVA tenderness (R), CVA tenderness (L) Skin: positive: Color nml, Warm, Dry. negative: Cyanosis, Diaphoresis, Pallor Extremities: positive: Non-tender, Full ROM, Nml appearance. negative: Calf tenderness Neurologic/Psychiatric: positive: Oriented x3, Motor nml, Sensation nml, Mood/affect nml. negative: Weakness, Sensory loss, Facial droop, Slurred/abnml speech, Depressed mood/affect - LABS Result Diagrams: 05/23/20 05:23 05/23/20 05:23 - FOLLOW UP Follow Up: after hydration, your kidney function resume in the normal arrange, your nausea or vomiting are controlled, your C.diff test is negative, your blood pressure is good control as well. You had significant dehydration, hypotension, and slightly low sodium level at the admission, your home blood pressure Losartan/HCTZ is hold now, resume your other home medication, keep hydration at home, you may followup with your PCP in one week. Your C.diff test is negative, your nausea or vomiting are controlled, take Imodium as needed, keep hydration at home, you may followup with your PCP in one week. you likely had virus gastroenteritis at the admission. you may followup with your PCP in one week, have blood work to monitor potassium level and kidney function check. Should your symptoms return or worsen, you may present ER or call 911 for help. - TIME SPENT Time Spent in Discharge (Minutes): 30
[2020-05-23 16:01] VITALS: BP 147/57
[2020-05-24] MEDS ORDERED: METOPROLOL SUCCINATE 50 MG TABLET PO SCH (09:00)
== END 2020-05-23 16:55 | disposition home or self-care (01) | DRG 683 ==
LOC: ED 09:01 → MS2 11:00
PROVIDERS: ADMIT Internal Medicine; ATTEND Nurse Practitioner Gerontology
DX: N17.9 Acute kidney failure, unspecified (principal); R11.2 Nausea with vomiting, unspecified; R19.7 Diarrhea, unspecified; E11.9 Type 2 diabetes mellitus without complications; E87.1 Hypo-osmolality and hyponatremia; A08.4 Viral intestinal infection, unspecified; E86.0 Dehydration; I95.1 Orthostatic hypotension; E87.6 Hypokalemia; E83.42 Hypomagnesemia; R01.1 Cardiac murmur, unspecified; Z20.822 Contact with and (suspected) exposure to COVID-19; E03.9 Hypothyroidism, unspecified; D64.9 Anemia, unspecified; K21.9 Gastro-esophageal reflux disease without esophagitis; K44.9 Diaphragmatic hernia without obstruction or gangrene; I25.10 Atherosclerotic heart disease of native coronary artery without angina pectoris; Z95.5 Presence of coronary angioplasty implant and graft; I25.2 Old myocardial infarction; Z79.84 Long term (current) use of oral hypoglycemic drugs; Z79.899 Other long term (current) drug therapy; Z90.49 Acquired absence of other specified parts of digestive tract
CPT/HCPCS: 36415; 74176; 80048; 80053; 81001; 83036; 83605; 83735; 84443; 84484; 85025; 87086; 87493; 87631; 93005; 93306; 96360; 99284; 99285; A6250; A9270; 0202U

== ENCOUNTER 2020-05-29 12:49 | Outpatient (CLI) | payer MEDICARE, BC ==
--- NOTE | 2020-05-29 16:42 | Mammography Report ---
UNILATERAL RIGHT DIGITAL DIAGNOSTIC MAMMOGRAM 3D/2D: 05/29/2020 CLINICAL: Additional evaluation requested from prior study. Patient returns today to evaluate an asym metry in the right breast. Comparison is made to exams dated: 04/25/2020 mammogram, 04/28/2019 mammogram, 04/24/2018 mammogram, 2016 mammogram, 02/21/2016 mammogram, and 02/12/2016 mammogram - [facility]. There are scattered fibroglandular elements in right breast. The previously described possible 0.2 cm oval equal density asymmetry in the right breast middle dept h lateral region seen on the craniocaudal view only appears less prominent and decreased in size and correlates with previously noted small posterior depth lymph node. No other significant masses or calcifications are seen in the breast. IMPRESSION: BENIGN There is a 0.2 cm oval equal density asymmetry in the right breast is consistent with a lymph node an d is benign. There is no mammographic evidence of malignancy. A 1 year screening mammogram is recommended. Findings and recommendations were conveyed to the patient during today's evaluation. This exam was interpreted at Station ID: [id number]. NOTE: For mammograms, a report in lay terms will be sent to the patient. Approximately 15% of breast malignancies will not be visualized mammographically. In the management of a palpable breast mass, a negative mammogram must not discourage biopsy of a clinically suspicious lesion. Electronically Signed By: Henry Fink M.D. aty/:05/29/2020 14:24:10 ACR BI-RADS Category 2: Benign Finding(s) 3342F PARENCHYMAL PATTERN: (A) - The breast(s) demonstrate(s) scattered fibroglandular densities. BI-RADS CATEGORY: (2) - 2 RECOMMENDATION: (ANNUAL) - Recommend routine annual screening mammography. [id number] 1 year screening LATERALITY: (B)
== END 2020-05-29 12:50 | disposition home or self-care (01) ==
LOC: DI 12:49
PROVIDERS: ATTEND Physician Assistant Medical
DX: R92.8 Other abnormal and inconclusive findings on diagnostic imaging of breast (principal)

== ENCOUNTER 2021-05-21 10:18 | Outpatient (CLI) | payer MEDICARE, BC ==
--- NOTE | 2021-05-22 08:46 | Mammography Report ---
BILATERAL DIGITAL SCREENING MAMMOGRAM 3D/2D: 05/21/2021 CLINICAL: Routine screening. Comparison is made to exams dated: 05/29/2020 mammogram, 04/25/2020 mammogram, 04/28/2019 mammogram, 019 mammogram, and 02/24/2017 mammogram - [facility]. There are scattered fibroglan dular elements in both breasts. No significant masses, calcifications, or other findings are seen in either breast. There has been no significant interval change. IMPRESSION: NEGATIVE There is no mammographic evidence of malignancy. A 1 year screening mammogram is recommended. This exam was interpreted at Station ID: [id number]. NOTE: For mammograms, a report in lay terms will be sent to the patient. Approximately 15% of breast malignancies will not be visualized mammographically. In the management of a palpable breast mass, a negative mammogram must not discourage biopsy of a clinically suspicious lesion. Electronically Signed By: Zi lynn/brian:05/21/2021 14:03:52 ACR BI-RADS Category 1: Negative 3341F PARENCHYMAL PATTERN: (A) - The breast(s) demonstrate(s) scattered fibroglandular densities. BI-RADS CATEGORY: (1) - 1 RECOMMENDATION: (ANNUAL) - Recommend routine annual screening mammography. [id number] 1 year screening LATERALITY: (B)
== END 2021-05-21 10:19 | disposition home or self-care (01) ==
LOC: DI.N 10:18
DX: Z12.31 Encounter for screening mammogram for malignant neoplasm of breast (principal)

== ENCOUNTER 2021-07-14 07:22 | Emergency (ER) | payer MEDICARE, BC ==
[2021-07-14 08:19] LABS: BASOPHILS % (AUTO) 0.3 %; EOSINOPHILS # (AUTO) 0.2 10^3/uL (0.0-0.7); EOSINOPHILS % (AUTO) 2.3 %; HCT - HEMATOCRIT 50.1 % (37.0-47.0); HGB - HEMOGLOBIN 16.9 g/dL (12.0-16.0); LYMPHOCYTES # (AUTO) 1.1 10^3/uL (1.5-3.5); LYMPHOCYTES % (AUTO) 11.9 %; MEAN CORPUSCULAR HEMOGLOBIN 29.6 pg (27.0-31.0); MEAN CORPUSCULAR HGB CONC 33.7 g/dL (32.0-36.0); MEAN CORPUSCULAR VOLUME 87.9 fL (81.0-99.0); MEAN PLATELET VOLUME 9.9 fL (7.9-10.8); MONOCYTES % (AUTO) 10.8 %; NEUTROPHILS # (AUTO) 6.8 10^3/uL (1.5-6.6); NEUTROPHILS % (AUTO) 74.4 %; PLT - PLATELET COUNT 307 10^3/uL (130-450); RED CELL DISTRIBUTION WIDTH 13.2 % (12.0-15.0); WHITE BLOOD COUNT 9.1 x10^3/uL (4.8-10.8)
--- NOTE | 2021-07-14 08:25 | ED Physician Documentation ---
PD HPI NVD - Stated complaint Stated Complaint: NAUSEA/VOMITING - Chief complaint Chief Complaint: Abd Pain - History obtained from History obtained from: Patient - History of Present Illness Timing - onset: How many days ago (44) Timing - duration: Days Timing - details: Gradual onset, Still present Associated symptoms: Abdominal pain (crampy lower abd), Loss of appetite. 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 Has been hospitalized few times for it.). No: Sick contact, Bad food, Recent antibiotics Improved by: Vomiting (few times, but mostly just nauseated.). No: Eating Worsened by: Eating Similar symptoms before: No diagnosis (she states negative stool cultues and CTs when has had this. Hospitalized for dehydration in the past.) Recently seen: Not recently seen Review of Systems Constitutional: denies: Fever, Chills Nose: denies: Rhinorrhea / runny nose, Congestion Throat: denies: Sore throat Cardiac: denies: Chest pain / pressure, Palpitations Respiratory: denies: Dyspnea, Cough GI: reports: Abdominal Pain, Nausea, Vomiting, Diarrhea. denies: Constipation, Hematemesis, Bloody / black stool : reports: Dysuria, Frequency. denies: Incontinent Musculoskeletal: denies: Back pain Neurologic: reports: Generalized weakness, Headache. denies: Focal weakness, Numbness, Near syncope, Altered mental status PD PAST MEDICAL HISTORY - Past Medical History Cardiovascular: [place] Respiratory: None Neuro: None Endocrine/Autoimmune: Type 2 diabetes, HyPOthyroidism GI: GERD, Hiatal hernia Musculoskeletal: None - Past Surgical History Past Surgical History: Yes General: Colonoscopy /ADOPTION COORDINATOR: Tubal ligation Cardiovascular: Coronary stent - Present Medications Home Medications: Ambulatory Orders Medication Instructions Recorded Confirmed Amlodipine Besylate [Norvasc] 2.5 mg PO QPM 04/07/20 05/21/20 Amlodipine Besylate [Norvasc] 5 mg PO DAILY 04/07/20 05/21/20 Atorvastatin [Lipitor] 40 mg PO QPM 04/07/20 05/21/20 Latanoprost 0.005% Ophth Drops 1 drops LEFTEYE DAILY 04/07/20 05/21/20 [Xalatan Ophth Drops] Levothyroxine Sodium [Synthroid] 175 mcg PO QDAC 04/07/20 05/21/20 Liraglutide [Victoza 2-Karel] 1.8 mg SUBQ DAILY 04/07/20 05/21/20 Metoprolol Succinate [Toprol Xl] 150 mg PO DAILY 04/07/20 05/21/20 Omeprazole [PriLOSEC] 20 mg PO DAILY 04/07/20 05/21/20 Ondansetron Odt [Zofran Odt] 4 mg PO DAILY 04/07/20 05/21/20 glipiZIDE [Glipizide] 10 mg PO BID 04/07/20 05/21/20 Loperamide [Imodium] 2 mg PO QID PRN #6 capsule 04/08/20 05/21/20 Diphenoxylate/Atropine [Lomotil] 1 each PO QID PRN #20 tablet 07/14/21 Lactobacillus Combination No.4 1 each PO BID 10 Days #20 cap 07/14/21 [Probiotic] Ondansetron Odt [Zofran] 4 mg TL Q6H PRN #10 tablet 07/14/21 cephALEXin [Keflex] 500 mg PO TID 5 Days #15 cap 07/14/21 - Allergies Allergies/Adverse Reactions: Allergies Allergy/AdvReac Type Severity Reaction Status Date / Time fluvastatin [From Lescol] Allergy Unknown Verified 05/21/20 09:12 omeprazole [From Prilosec] Allergy Unknown Verified 05/21/20 09:12 Penicillins Allergy Nausea Verified 05/21/20 09:12 Sulfa (Sulfonamide Allergy not known Verified 05/21/20 09:12 Antibiotics) benazepril [From Lotensin] AdvReac Respiratory Verified 05/21/20 09:12 - Social History Does the pt smoke?: No Smoking Status: Never smoker Does the pt drink ETOH?: No Does the pt have substance abuse?: No - Immunizations Immunizations are current?: Yes - POLST Patient has POLST: No PD ED PE NORMAL - Vitals Vital signs reviewed: Yes - General General: Alert and oriented X 3, No acute distress, Well developed/nourished - HEENT HEENT: Pharynx benign. No: Moist mucous membranes - Neck Neck: Supple, no meningeal sign, No adenopathy - Cardiac Cardiac: RRR, No murmur - Respiratory Respiratory: Clear bilaterally - Abdomen Abdomen: Normal bowel sounds, Soft, Non distended, No organomegaly, Other - Female Female : Deferred - Rectal Rectal: Deferred - Back Back: No CVA TTP - Derm Derm: Normal color, Warm and dry - Extremities Extremities: No edema, No calf tenderness / cord - Neuro Neuro: Alert and oriented X 3, No motor deficit, Normal speech Results - Vitals Vitals: Vital Signs - 24 hr 07/14/21 07/14/21 07/14/21 07:27 08:16 10:21 Temperature 36.4 C L Heart Rate 99 99 88 Respiratory 16 22 22 Rate Blood Pressure 130/74 132/70 H 104/50 L O2 Saturation 97 96 98 Oxygen O2 Source Room air - Labs Labs: Laboratory Tests 07/14/21 07/14/21 07/14/21 08:14 08:14 08:14 WBC 9.1 RBC 5.70 H Hgb 16.9 H Hct 50.1 H MCV 87.9 MCH 29.6 MCHC 33.7 RDW 13.2 Plt Count 307 MPV 9.9 Neut # (Auto) 6.8 H Lymph # (Auto) 1.1 L [place] # (Auto) 1.0 Eos # (Auto) 0.2 Baso # (Auto) 0.0 Absolute Nucleated RBC 0.00 Nucleated RBC % 0.0 Sodium 136 Potassium 3.7 Chloride 98 L Carbon Dioxide 24 Anion Gap 14.0 H BUN 14 Creatinine 0.9 Estimated GFR (MDRD) 62 L Glucose 240 H Calcium 9.1 Magnesium 1.8 Total Bilirubin 1.1 H AST 23 ALT 26 Alkaline Phosphatase 68 Total Protein 7.5 Albumin 3.8 Globulin 3.7 Albumin/Globulin Ratio 1.0 Lipase 24 Urine Color Urine Clarity Urine pH Ur Specific [place] Urine Protein Urine Glucose (UA) Urine Ketones Urine Occult Blood Urine Nitrite Urine Bilirubin Urine Urobilinogen Ur Leukocyte Esterase Urine RBC Urine WBC Ur Squamous Epith Cells Urine Bacteria Urine Mucus Ur Microscopic Review Urine Culture Comments Stl C. diff Tox B Gene 07/14/21 07/14/21 09:41 09:41 WBC RBC Hgb Hct MCV MCH MCHC RDW Plt Count MPV Neut # (Auto) Lymph # (Auto) [place] # (Auto) Eos # (Auto) Baso # (Auto) Absolute Nucleated RBC Nucleated RBC % Sodium Potassium Chloride Carbon Dioxide Anion Gap BUN Creatinine Estimated GFR (MDRD) Glucose Calcium Magnesium Total Bilirubin AST ALT Alkaline Phosphatase Total Protein Albumin Globulin Albumin/Globulin Ratio Lipase Urine Color YELLOW Urine Clarity CLOUDY Urine pH 6.0 Ur Specific [place] >=1.030 H Urine Protein 100 H Urine Glucose (UA) NEGATIVE Urine Ketones NEGATIVE Urine Occult Blood MODERATE H Urine Nitrite POSITIVE H Urine Bilirubin NEGATIVE Urine Urobilinogen 0.2 (NORMAL) Ur Leukocyte Esterase MODERATE H Urine RBC 11-25 H Urine WBC >25 H Ur Squamous Epith Cells RARE Squamous Urine Bacteria Moderate H Urine Mucus Few Strands Ur Microscopic Review INDICATED Urine Culture Comments INDICATED Stl C. diff Tox B Gene NEGATIVE - Rads (name of study) abd/pelvic CT Radiology: Prelim report reviewed, See rad report (no significant abnormality seen. Liquid in colon c/w reportd diarrhea. ) PD MEDICAL DECISION MAKING - ED course Complexity details: reviewed old records (prior admission for similar. ), reviewed results, re-evaluated patient (feeling betteer with fluids and meds. She would like to go home and try treatment there. ), considered differential, d/w patient Departure - Departure Disposition: 01 Home, Self Care Clinical Impression: Nausea, Dehydration Diarrhea Qualifiers: Diarrhea type: unspecified type Qualified Code(s): R19.7 - Diarrhea, unspecified UTI (urinary tract infection) Qualifiers: Urinary tract infection type: acute cystitis Hematuria presence: without hematuria Qualified Code(s): N30.00 - Acute cystitis without hematuria Condition: Stable Record reviewed to determine appropriate education?: Yes Instructions: ED Diet Vomiting Diarrhea, ED UTI Cystitis Female Follow-Up: Tashia Bailey PA-C [Primary Care Provider] - Prescriptions: cephALEXin [Keflex] 500 mg PO TID 5 Days #15 cap Diphenoxylate/Atropine [Lomotil] 1 each PO QID PRN #20 tablet PRN Reason: Diarrhea Lactobacillus Combination No.4 [Probiotic] 1 each PO BID 10 Days #20 cap Ondansetron Odt [Zofran] 4 mg TL Q6H PRN #10 tablet PRN Reason: Nausea / Vomiting Comments: Small frequent fluids and try to stay well-hydrated. O dancer Sheldon every 4-6 hours if needed for nausea. Continue with Imodium and/or Lomotil for diarrhea. I would also suggest adding or continuing probiotic supplements 2-3 times daily for the next several days to week. Your CT scan does not show any acute structural abnormality of the intestines. Presume some irritation of it leading to your symptoms (colitis). At this point no suggestion of an infectious component per se. You do have a bladder infection noted on your testing. Cephalexin 3 times daily for 5 days for that. Recheck if not improving well over the next few days and return sooner if worse. I transmitted your prescription to [facility] pharmacy. Discharge Date/Time: 07/14/21 13:14
[2021-07-14 08:44] LABS: ALBUMIN 3.8 g/dL (3.2-5.5); BILIRUBIN,TOTAL 1.1 mg/dL (0.2-1.0); CALCIUM 9.1 mg/dL (8.5-10.3); CREATININE 0.9 mg/dL (0.4-1.0); POTASSIUM 3.7 mmol/L (3.5-5.0); TOTAL PROTEIN 7.5 g/dL (6.7-8.2)
[2021-07-14] MEDS: ONDANSETRON 4 MG/2 ML VIAL IVP STA (08:54)
[2021-07-14] MEDS: SODIUM CHLORIDE 0.9% 1,000 ML IV STA ×2 (08:54→11:34)
[2021-07-14] MEDS: DIPHENOX/ATROPINE 2.5/0.025 MG TABLET PO STA (08:55)
[2021-07-14] MEDS: MORPHINE 2 MG/ML CARPUJECT IVP STA (09:07)
[2021-07-14 10:18] LABS: BILIRUBIN,URINE NEGATIVE (NEGATIVE); GLUCOSE, URINE (UA) NEGATIVE (NEGATIVE); KETONES,URINE (UA) NEGATIVE (NEGATIVE); LEUKOCYTE ESTERASE, URINE MODERATE (NEGATIVE); NITRITE,URINE POSITIVE (NEGATIVE); OCCULT BLOOD,URINE MODERATE (NEGATIVE); PROTEIN,URINE 100 mg/dL (NEGATIVE); UROBILINOGEN,URINE 0.2 (NORMAL) E.U./dL (NORMAL)
[2021-07-14 10:22] VITALS: BP 104/50
[2021-07-14 10:31] LABS: CLARITY,URINE CLOUDY (CLEAR)
[2021-07-14] MEDS ORDERED: IOVERSOL 320 100 ML VIAL IVP ONE (10:37)
[2021-07-14 10:48] LABS: BACTERIA,URINE Moderate /HPF (None Seen); SQUAMOUS EPITHELIAL CELL,UR RARE Squamous (<= Few); WBC,URINE >25 /HPF (0-5)
[2021-07-14 10:49] LABS: MUCUS,URINE Few Strands
[2021-07-14] MEDS: IOVERSOL 320 100 ML VIAL IVP ONE (10:57)
--- NOTE | 2021-07-14 11:08 | CT Report ---
PROCEDURE: Abdomen/Pelvis W INDICATIONS: abd pain, diarrhea, bloating CONTRAST: IV CONTRAST: Optiray 320 ml: 100 PO CONTRAST: *NO PO CONTRAST TECHNIQUE: After the administration of IV contrast, 5 mm thick sections acquired from the diaphragms to the symp hysis. 5 mm thick coronal and sagittal reformats were acquired. For radiation dose reduction, the f ollowing was used: automated exposure control, adjustment of mA and/or kV according to patient size. COMPARISON: 05/21/2020 FINDINGS: Image quality: Excellent. ABDOMEN: Lung bases: Lung bases are clear. Heart size is normal. Solid organs: Enlarged, fatty infiltrated liver can be seen. No focal liver lesions are seen. The spl een demonstrates normal size and demonstrates no suspicious lesions. Gallbladder wall does not appea r thickened. Biliary system is non dilated. Pancreas enhances normally. No adrenal nodules. Kid neys demonstrate normal size and enhancement, without hydronephrosis. Peritoneum and bowel: Bowel loops demonstrate normal wall thickness and caliber. No free fluid or a ir. Right lower quadrant postoperative changes are seen. Liquid stool is seen within the colon. Part ial malrotation can be seen, with the duodenum partially crossing the midline and the proximal jejunu m seen within the right upper quadrant of the abdomen. Nodes and vessels: No retroperitoneal or mesenteric adenopathy by size criteria. Aorta and inferior vena cava are normal in size. Miscellaneous: No ventral hernias. PELVIS: Genitourinary: Bladder wall thickness is normal. Miscellaneous: No inguinal hernias or adenopathy. Bones: No suspicious bony lesions. No vertebral body compression fractures. There is focal L5-S1 d egenerative change. Milder degenerative changes are seen elsewhere. IMPRESSION: No significant abnormality of the small bowel or colon can be seen. Liquid stool is seen within the colon, which corresponds well to the given clinical history of diarrh ea. Incidental note is made of: Enlarged, fatty liver. Partial malrotation. Focal L5-S1 degenerative change Reviewed by: Jeff Reagan MD on 07/14/2021 10:07 AM DEION Approved by: Jeff Reagan MD on 07/14/2021 10:07 AM DEION Station ID: [id number]
[2021-07-14] MEDS: cefTRIAXone 1 GM VIAL IVP STA (11:14)
[2021-07-14] MEDS: SACCHAROMYCES BOULARDII 250 MG CAPSULE PO STA (11:34)
[2021-07-14] MEDS: KETOROLAC 15 MG/ML VIAL IVP STA (11:34)
== END 2021-07-14 13:14 | disposition home or self-care (01) ==
LOC: ED 07:22
DX: R11.2 Nausea with vomiting, unspecified (principal); R19.7 Diarrhea, unspecified; E86.0 Dehydration; N30.00 Acute cystitis without hematuria
CPT/HCPCS: 36415; 74177; 80053; 81001; 83690; 83735; 85025; 87086; 87181; 87493; 96361; 96374; 96375; 99284; A9270; Q9967; 81003

== ENCOUNTER 2022-03-18 07:30 | Outpatient (CLI) | payer MEDICARE, BC ==
[2022-03-18 12:55] LABS: ALBUMIN 4.3 g/dL (3.2-5.5); ALBUMIN/GLOBULIN RATIO 1.2 (1.0-2.2); ALKALINE PHOSPHATASE 48 IU/L (42-121); ALT ALANINE AMINOTRANSFERASE 26 IU/L (10-60); AST ASPARTATE AMINOTRANSFERASE 23 IU/L (10-42); BUN - BLOOD UREA NITROGEN 18 mg/dL (6-20); CARBON DIOXIDE - CO2 27 mmol/L (21-32); CHLORIDE 101 mmol/L (101-111); CHOL/HDL RATIO 5.4 (<4.4); CHOLESTEROL 207 mg/dL; CREATININE 0.7 mg/dL (0.4-1.0); GFR - MDRD 83 (>89); GLUCOSE 197 mg/dL (70-100); HDL CHOLESTEROL 38 mg/dL; POTASSIUM 4.5 mmol/L (3.5-5.0); SODIUM 138 mmol/L (135-145); TOTAL PROTEIN 7.9 g/dL (6.7-8.2); TRIGLYCERIDES 437 mg/dL
[2022-03-18 13:33] LABS: LDL CHOLESTEROL,DIRECT 86 mg/dL; LDLD/HDL RATIO 2.3 (<4.4)
[2022-03-18 14:47] LABS: ESTIMATED AVERAGE GLUCOSE 177 mg/dL (70-100); HEMOGLOBIN A1c% 7.8 % (4.27-6.07)
== END 2022-03-18 07:31 | disposition home or self-care (01) ==
LOC: LAB.N 07:30
PROVIDERS: ATTEND Physician Assistant Medical
DX: E11.9 Type 2 diabetes mellitus without complications (principal)
CPT/HCPCS: 36415; 80053; 80061; 83036; 83721

== ENCOUNTER 2022-06-20 07:07 | Outpatient (CLI) | payer MEDICARE, BC ==
[2022-06-20 07:44] LABS: ALBUMIN 4.2 g/dL (3.2-5.5); ALBUMIN/GLOBULIN RATIO 1.2 (1.0-2.2); ALKALINE PHOSPHATASE 53 IU/L (42-121); ALT ALANINE AMINOTRANSFERASE 24 IU/L (10-60); AST ASPARTATE AMINOTRANSFERASE 21 IU/L (10-42); BILIRUBIN,TOTAL 1.3 mg/dL (0.2-1.0); BUN - BLOOD UREA NITROGEN 22 mg/dL (6-20); CALCIUM 9.6 mg/dL (8.5-10.3); CARBON DIOXIDE - CO2 26 mmol/L (21-32); CHLORIDE 107 mmol/L (101-111); CHOL/HDL RATIO 5.9 (<4.4); CHOLESTEROL 220 mg/dL; CREATININE 0.7 mg/dL (0.4-1.0); GFR - MDRD 83 (>89); GLUCOSE 193 mg/dL (70-100); HDL CHOLESTEROL 37 mg/dL; POTASSIUM 4.7 mmol/L (3.5-5.0); SODIUM 142 mmol/L (135-145); TOTAL PROTEIN 7.8 g/dL (6.7-8.2); TRIGLYCERIDES 469 mg/dL
[2022-06-20 08:16] LABS: LDL CHOLESTEROL,DIRECT 88 mg/dL; LDLD/HDL RATIO 2.4 (<4.4)
[2022-06-20 09:59] LABS: ESTIMATED AVERAGE GLUCOSE 189 mg/dL (70-100); HEMOGLOBIN A1c% 8.2 % (4.27-6.07)
== END 2022-06-20 07:08 | disposition home or self-care (01) ==
LOC: LAB 07:07
PROVIDERS: ATTEND Physician Assistant Medical
DX: E11.9 Type 2 diabetes mellitus without complications (principal)
CPT/HCPCS: 36415; 80053; 80061; 83036; 83721

== ENCOUNTER 2022-07-02 07:12 | Emergency (ER) | payer MEDICARE, BC ==
--- NOTE | 2022-07-02 07:33 | ED Physician Documentation ---
History of Present Illness - Stated complaint Stated Complaint: CHEST PX - Chief complaint Chief Complaint: Cardiac - Additonal information Additional information: Patient is a 72-year-old female presenting to the emergency department with le ft-sided chest pain. Past medical history significant for coronary artery disease, hypertension, dyslipidemia, hypothyroidism, type 2 diabetes, gastric reflux. Pain began last nightBut subsequently resolved and returned this morning worse than before. She describes it as a central chest pain is similar to indigestion but also similar to the pain she was having when she had a myocardial infarction 20 years ago.. Radiates down the left arm. No alleviating or exacerbating factors.Follows with Dr. Vega, Cardiology [facility]. 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 : None HEENT: None Psych: None Musculoskeletal: None Derm: None - Past Surgical History Past Surgical History: Yes General: Colonoscopy /DROP CREW LABORER: Tubal ligation Cardiovascular: Coronary stent - Present Medications Home Medications: Ambulatory Orders Medication Instructions Recorded Confirmed Amlodipine Besylate [Norvasc] 2.5 mg PO QPM 04/07/20 05/21/20 Amlodipine Besylate [Norvasc] 5 mg PO DAILY 04/07/20 05/21/20 Atorvastatin [Lipitor] 40 mg PO QPM 04/07/20 05/21/20 Latanoprost 0.005% Ophth Drops 1 drops LEFTEYE DAILY 04/07/20 05/21/20 [Xalatan Ophth Drops] Levothyroxine Sodium [Synthroid] 175 mcg PO QDAC 04/07/20 05/21/20 Liraglutide [Victoza 2-Karel] 1.8 mg SUBQ DAILY 04/07/20 05/21/20 Metoprolol Succinate [Toprol Xl] 150 mg PO DAILY 04/07/20 05/21/20 Omeprazole [PriLOSEC] 20 mg PO DAILY 04/07/20 05/21/20 Ondansetron Odt [Zofran Odt] 4 mg PO DAILY 04/07/20 05/21/20 glipiZIDE [Glipizide] 10 mg PO BID 04/07/20 05/21/20 Loperamide [Imodium] 2 mg PO QID PRN #6 capsule 04/08/20 05/21/20 Diphenoxylate/Atropine [Lomotil] 1 each PO QID PRN #20 tablet 07/14/21 Lactobacillus Combination No.4 1 each PO BID 10 Days #20 cap 07/14/21 [Probiotic] Ondansetron Odt [Zofran] 4 mg TL Q6H PRN #10 tablet 07/14/21 cephALEXin [Keflex] 500 mg PO TID 5 Days #15 cap 07/14/21 - Allergies Allergies/Adverse Reactions: Allergies Allergy/AdvReac Type Severity Reaction Status Date / Time fluvastatin [From Lescol] Allergy Unknown Verified 05/21/20 09:12 omeprazole [From Prilosec] Allergy Unknown Verified 05/21/20 09:12 Penicillins Allergy Nausea Verified 05/21/20 09:12 Sulfa (Sulfonamide Allergy not known Verified 05/21/20 09:12 Antibiotics) benazepril [From Lotensin] AdvReac Respiratory Verified 05/21/20 09:12 - Social History Does the pt smoke?: No Smoking Status: Never smoker Does the pt drink ETOH?: No Does the pt have substance abuse?: No - Immunizations Immunizations are current?: Yes - POLST Patient has POLST: No PD ED PE NORMAL - Vitals Vital signs reviewed: Yes (Mildly hypertensive with systolic blood pressure 160) - General General: Alert and oriented X 3, No acute distress - HEENT HEENT: Atraumatic, PERRL, EOMI, Ears normal - Neck Neck: Supple, no meningeal sign, No bony TTP, No adenopathy - Cardiac Cardiac: RRR, No gallop - Respiratory Respiratory: No respiratory distress, Clear bilaterally - Abdomen Abdomen: Normal bowel sounds, Non tender - Derm Derm: Normal color - Extremities Extremities: No deformity - Neuro Neuro: Alert and oriented X 3, orthotic finish grinding technician 2-12 intact, No motor deficit, No sensory deficit, Normal speech Results - Vitals Vitals: Vital Signs - 24 hr 07/02/22 07/02/22 07/02/22 07:26 07:35 08:02 Temperature 36.5 C Heart Rate 60 66 65 Respiratory 18 18 18 Rate Blood Pressure 160/62 H 168/69 H 145/58 H O2 Saturation 99 97 95 07/02/22 07/02/22 07/02/22 08:33 09:00 09:30 Temperature Heart Rate 61 73 65 Respiratory 18 18 20 Rate Blood Pressure 151/62 H 162/98 H O2 Saturation 93 98 96 07/02/22 07/02/22 07/02/22 10:00 10:33 11:00 Temperature Heart Rate 65 70 64 Respiratory 18 18 18 Rate Blood Pressure 147/60 H 142/65 H 139/64 H O2 Saturation 96 97 95 07/02/22 07/02/22 11:30 12:10 Temperature Heart Rate 62 64 Respiratory 18 18 Rate Blood Pressure 135/62 H 130/65 O2 Saturation 91 L 98 Oxygen O2 Source Room air - EKG (time done) 0724 EKG releavant findings:: EKG personally interpreted by author of this note. Relevant findings are: Sinus rhythm with rate 63 bpm. Normal axis. Normal RI, QRS, QTc intervals. No ST segment elevations. ST depressions throughout. New ST depressions in the lateral leads in comparison to previous 131/21. 1139 EKG releavant findings:: EKG personally interpreted by author of this note. Relevant findings are: Sinus rhythm with rate 62 bpm. Normal axis. Normal RI, QRS, QTc intervals. No ST segment elevations. Nonspecific ST and T wave abnormalities throughout. - Labs Labs: Laboratory Tests 07/02/22 07/02/22 07/02/22 07:52 07:52 07:52 WBC 6.8 RBC 5.18 Hgb 14.8 Hct 46.6 MCV 90.0 MCH 28.6 MCHC 31.8 L RDW 14.2 Plt Count 199 MPV 10.8 Neut # (Auto) 4.9 Lymph # (Auto) 1.2 L [place] # (Auto) 0.5 Eos # (Auto) 0.2 Baso # (Auto) 0.0 Absolute Nucleated RBC 0.00 Nucleated RBC % 0.0 PT 12.1 INR 1.1 D-Dimer < 200.0 L Sodium 136 Potassium 4.0 Chloride 101 Carbon Dioxide 25 Anion Gap 10.0 BUN 18 Creatinine 0.7 Estimated GFR (MDRD) 83 L Glucose 186 H Calcium 8.9 Total Bilirubin 1.4 H AST 28 ALT 29 Alkaline Phosphatase 48 Troponin I High Sens Total Protein 7.5 Albumin 4.0 Globulin 3.5 Albumin/Globulin Ratio 1.1 Lipase 35 07/02/22 07/02/22 07:52 09:25 WBC RBC Hgb Hct MCV MCH MCHC RDW Plt Count MPV Neut # (Auto) Lymph # (Auto) [place] # (Auto) Eos # (Auto) Baso # (Auto) Absolute Nucleated RBC Nucleated RBC % PT INR D-Dimer Sodium Potassium Chloride Carbon Dioxide Anion Gap BUN Creatinine Estimated GFR (MDRD) Glucose Calcium Total Bilirubin AST ALT Alkaline Phosphatase Troponin I High Sens 198.1 H* 243.6 H* Total Protein Albumin Globulin Albumin/Globulin Ratio Lipase PD Medical Decision Making - ED course Complexity details: reviewed results, d/w patient Reviewed Lab Results: Patient's labs significant for an elevated troponin that is uptrending. Additionally she notably has a negative D-dimer. The remainder of her labs were within normal limits or nonactionable. Drug Therapy Requiring Monitoring for Toxicity: IV fentanyl ED course: Patient 72-year-old female with known history of coronary artery disease, diabetes, hypertension, dyslipidemia, obesity presenting to the emergency department with chest pain ongoing x12-24 hours. Afebrile, hemodynamically stable on arrival to the emergency department. Initial EKG demonstrates nonspecific ST and T wave abnormalities that were largely present on her previous EKGs in 2020 however she does appear to have new onset ST depressions in her high lateral leads I and aVL. Labs obtained demonstrated an elevated troponin of slightly less than 200 which up trended to approximately 250 on repeat. She had a negative D-dimer. Her chest x-ray was nonacute. She was given aspirin and a single dose of weight-based subcutaneous Lovenox. Echocardiogram was performed with report pending at this time. She was offered nitroglycerin which she declined stating that she has been intolerant to this medication in the past. She was given small doses of IV fentanyl for pain control. Her care was discussed with the cardiology service at [facility] as well as with the hospitalist service there. Graciously they agreed to accept the patient in transfer. - Consults Consults: Consulted (name) (Dr. Nguyen, [facility] cardiology. Dr. Andreas Caldwell, [facility] hospitalist service) Departure - Departure Disposition: 02 Transfer Acute Care Hosp Clinical Impression: NSTEMI (non-ST elevated myocardial infarction)
[2022-07-02 07:58] LABS: BASOPHILS % (AUTO) 0.4 %; EOSINOPHILS # (AUTO) 0.2 10^3/uL (0.0-0.7); EOSINOPHILS % (AUTO) 2.4 %; HCT - HEMATOCRIT 46.6 % (37.0-47.0); HGB - HEMOGLOBIN 14.8 g/dL (12.0-16.0); LYMPHOCYTES # (AUTO) 1.2 10^3/uL (1.5-3.5); LYMPHOCYTES % (AUTO) 17.3 %; MEAN CORPUSCULAR HEMOGLOBIN 28.6 pg (27.0-31.0); MEAN CORPUSCULAR HGB CONC 31.8 g/dL (32.0-36.0); MEAN PLATELET VOLUME 10.8 fL (7.9-10.8); MONOCYTES # (AUTO) 0.5 10^3/uL (0.0-1.0); MONOCYTES % (AUTO) 7.4 %; NEUTROPHILS # (AUTO) 4.9 10^3/uL (1.5-6.6); NEUTROPHILS % (AUTO) 72.1 %; PLT - PLATELET COUNT 199 10^3/uL (130-450); RED BLOOD COUNT 5.18 10^6/uL (4.20-5.40); RED CELL DISTRIBUTION WIDTH 14.2 % (12.0-15.0); WHITE BLOOD COUNT 6.8 x10^3/uL (4.8-10.8)
[2022-07-02 08:06] LABS: INR 1.1 (0.8-1.2); PT - PROTHROMBIN TIME 12.1 secs (9.9-12.6)
[2022-07-02 08:13] LABS: D-DIMER < 200.0 ng/mL (200.0-255.0)
[2022-07-02 08:23] LABS: ALBUMIN/GLOBULIN RATIO 1.1 (1.0-2.2); BILIRUBIN,TOTAL 1.4 mg/dL (0.2-1.0); CALCIUM 8.9 mg/dL (8.5-10.3); CREATININE 0.7 mg/dL (0.4-1.0); TOTAL PROTEIN 7.5 g/dL (6.7-8.2)
--- NOTE | 2022-07-02 09:00 | XRAY Report ---
PROCEDURE: Chest 1 View X-Ray INDICATIONS: Chest pain TECHNIQUE: One view of the chest was acquired. COMPARISON: None. FINDINGS: Surgical changes and devices: None. Lungs and pleura: No pleural effusions or pneumothorax. Lungs are clear. Mediastinum: Mediastinal contours appear normal. Heart size is enlarged. Bones and chest wall: No suspicious bony lesions. Overlying soft tissues appear unremarkable. IMPRESSION: No acute pulmonary process. Reviewed by: Yesenia Emery MD on 07/02/2022 8:59 AM PDT Approved by: Yesenia Emery MD on 07/02/2022 8:59 AM PDT Station ID: [id number]
[2022-07-02] MEDS ORDERED: fentaNYL 100 MCG/2 ML VIAL IVP PRN (09:07)
[2022-07-02] MEDS: ASPIRIN 325 MG TABLET PO STA (09:25)
[2022-07-02] MEDS: ONDANSETRON 4 MG/2 ML VIAL IVP STA (09:26)
[2022-07-02] MEDS: PERFLUTREN LIPID MICROSPHERES 1.65 MG/1.5 ML VIAL IVP ONE (11:37)
[2022-07-02] MEDS: ENOXAPARIN 80 MG/0.8 ML SYRINGE SUBQ STA (12:10)
[2022-07-02 12:38] VITALS: BP 136/57
== END 2022-07-02 13:04 | disposition short-term general hospital (02) ==
LOC: ED 07:12
DX: I21.4 Non-ST elevation (NSTEMI) myocardial infarction (principal); I25.10 Atherosclerotic heart disease of native coronary artery without angina pectoris; E11.9 Type 2 diabetes mellitus without complications; I10 Essential (primary) hypertension; E78.5 Hyperlipidemia, unspecified; E03.9 Hypothyroidism, unspecified; E66.9 Obesity, unspecified; I25.2 Old myocardial infarction; Z79.899 Other long term (current) drug therapy; Z79.84 Long term (current) use of oral hypoglycemic drugs
CPT/HCPCS: 36415; 71045; 80053; 83690; 84484; 85025; 85379; 85610; 93005; 96372; 96374; 96375; 99285; A9270; C8929; J1650; Q9957; 93306

== ENCOUNTER 2022-07-02 13:07 | Outpatient (CLI) | payer MEDICARE, BC | END 2022-07-02 23:59 | disposition short-term general hospital (02) | LOC: EMS 13:07 | PROVIDERS: ATTEND Student in an Organized Health Care Education/Training Program | DX: I21.4 Non-ST elevation (NSTEMI) myocardial infarction (principal) | CPT/HCPCS: A0425; A0428 ==

== ENCOUNTER 2022-07-18 08:01 | Outpatient (CLI) | payer MEDICARE, BC ==
--- NOTE | 2022-07-18 10:41 | Mammography Report ---
BILATERAL DIGITAL SCREENING MAMMOGRAM 3D/2D: 07/18/2022 CLINICAL: Routine screening. Comparison is made to exams dated: 05/21/2021 mammogram, 05/29/2020 mammogram, 04/25/2020 mammogram, 2019 mammogram, and 04/24/2018 mammogram - [facility]. There are scattered areas of fibroglandular density in both breasts (category b / 25%-50% glandular t issue). No significant masses, calcifications, or other findings are seen in either breast. There has been no significant interval change. IMPRESSION: NEGATIVE There is no mammographic evidence of malignancy. A 1 year screening mammogram is recommended. Based on the Tyrer Cuzick model (a risk assessment model) the patients lifetime risk is 4.4% and her 10 year risk is 2.8%. According to the ACR, ACS, and NCCN guidelines, an annual breast MRI exam zeinab g with mammogram is recommended if the patients lifetime risk is 20% or greater. This exam was interpreted at Station ID: [id number]. NOTE: For mammograms, a report in lay terms will be sent to the patient. Approximately 15% of breast malignancies will not be visualized mammographically. In the management of a palpable breast mass, a negative mammogram must not discourage biopsy of a clinically suspicious lesion. Electronically Signed By: Zi lynn/brian:07/18/2022 10:07:47 letter sent: No_Letter ACR BI-RADS Category 1: Negative 3341F PARENCHYMAL PATTERN: (A) - The breast(s) demonstrate(s) scattered fibroglandular densities. BI-RADS CATEGORY: (1) - 1 Mammogram [id number] 1 year screening LATERALITY: (B)
== END 2022-07-18 08:02 | disposition home or self-care (01) ==
LOC: DI.N 08:01
DX: Z12.31 Encounter for screening mammogram for malignant neoplasm of breast (principal)

== ENCOUNTER 2022-09-11 07:05 | Outpatient (CLI) | payer MEDICARE, BC ==
[2022-09-11 07:50] LABS: ALBUMIN 4.2 g/dL (3.2-5.5); ALBUMIN/GLOBULIN RATIO 1.2 (1.0-2.2); ALKALINE PHOSPHATASE 48 IU/L (42-121); ALT ALANINE AMINOTRANSFERASE 28 IU/L (10-60); AST ASPARTATE AMINOTRANSFERASE 22 IU/L (10-42); BILIRUBIN,TOTAL 1.1 mg/dL (0.2-1.0); BUN - BLOOD UREA NITROGEN 17 mg/dL (6-20); CALCIUM 9.3 mg/dL (8.5-10.3); CARBON DIOXIDE - CO2 27 mmol/L (21-32); CHLORIDE 102 mmol/L (101-111); CHOL/HDL RATIO 5.4 (<4.4); CHOLESTEROL 195 mg/dL; CREATININE 0.7 mg/dL (0.4-1.0); GFR - MDRD 83 (>89); GLUCOSE 161 mg/dL (70-100); HDL CHOLESTEROL 36 mg/dL; POTASSIUM 4.4 mmol/L (3.5-5.0); SODIUM 140 mmol/L (135-145); TOTAL PROTEIN 7.7 g/dL (6.7-8.2); TRIGLYCERIDES 461 mg/dL
[2022-09-11 09:28] LABS: LDL CHOLESTEROL,DIRECT 91 mg/dL; LDLD/HDL RATIO 2.5 (<4.4)
[2022-09-11 11:50] LABS: ESTIMATED AVERAGE GLUCOSE 169 mg/dL (70-100); HEMOGLOBIN A1c% 7.5 % (4.27-6.07)
== END 2022-09-11 07:06 | disposition home or self-care (01) ==
LOC: LAB 07:05
PROVIDERS: ATTEND Physician Assistant Medical
DX: E11.9 Type 2 diabetes mellitus without complications (principal)
CPT/HCPCS: 36415; 80053; 80061; 83036; 83721

== ENCOUNTER 2022-10-09 06:59 | Outpatient (CLI) | payer MEDICARE, BC ==
[2022-10-09 07:36] LABS: ALBUMIN 4.2 g/dL (3.2-5.5); ALBUMIN/GLOBULIN RATIO 1.2 (1.0-2.2); ALKALINE PHOSPHATASE 48 IU/L (42-121); ALT ALANINE AMINOTRANSFERASE 28 IU/L (10-60); AST ASPARTATE AMINOTRANSFERASE 22 IU/L (10-42); BILIRUBIN,TOTAL 1.2 mg/dL (0.2-1.0); BUN - BLOOD UREA NITROGEN 19 mg/dL (6-20); CARBON DIOXIDE - CO2 28 mmol/L (21-32); CHLORIDE 102 mmol/L (101-111); CHOL/HDL RATIO 5.3 (<4.4); CHOLESTEROL 205 mg/dL; CREATININE 0.7 mg/dL (0.4-1.0); GFR - MDRD 83 (>89); GLUCOSE 176 mg/dL (70-100); HDL CHOLESTEROL 39 mg/dL; POTASSIUM 3.8 mmol/L (3.5-5.0); SODIUM 138 mmol/L (135-145); TOTAL PROTEIN 7.8 g/dL (6.7-8.2); TRIGLYCERIDES 421 mg/dL
[2022-10-09 07:53] LABS: LDL CHOLESTEROL,DIRECT 92 mg/dL; LDLD/HDL RATIO 2.4 (<4.4)
[2022-10-09 09:58] LABS: ESTIMATED AVERAGE GLUCOSE 169 mg/dL (70-100); HEMOGLOBIN A1c% 7.5 % (4.27-6.07)
== END 2022-10-09 07:00 | disposition home or self-care (01) ==
LOC: LAB 06:59
PROVIDERS: ATTEND Physician Assistant Medical
DX: E78.5 Hyperlipidemia, unspecified (principal); E11.9 Type 2 diabetes mellitus without complications
CPT/HCPCS: 36415; 80053; 80061; 83036; 83721

== ENCOUNTER 2023-04-10 20:10 | Emergency (ER) | payer MEDICARE, BC ==
[2023-04-10 20:42] LABS: BASOPHILS % (AUTO) 0.5 %; EOSINOPHILS # (AUTO) 0.1 10^3/uL (0.0-0.7); EOSINOPHILS % (AUTO) 0.9 %; HCT - HEMATOCRIT 49.3 % (37.0-47.0); HGB - HEMOGLOBIN 15.7 g/dL (12.0-16.0); LYMPHOCYTES # (AUTO) 0.4 10^3/uL (1.5-3.5); LYMPHOCYTES % (AUTO) 6.4 %; MEAN CORPUSCULAR HEMOGLOBIN 28.4 pg (27.0-31.0); MEAN CORPUSCULAR HGB CONC 31.8 g/dL (32.0-36.0); MEAN CORPUSCULAR VOLUME 89.2 fL (81.0-99.0); MEAN PLATELET VOLUME 10.7 fL (7.9-10.8); MONOCYTES # (AUTO) 0.4 10^3/uL (0.0-1.0); MONOCYTES % (AUTO) 6.9 %; NEUTROPHILS # (AUTO) 4.9 10^3/uL (1.5-6.6); PLT - PLATELET COUNT 240 10^3/uL (130-450); RED BLOOD COUNT 5.53 10^6/uL (4.20-5.40); RED CELL DISTRIBUTION WIDTH 14.6 % (12.0-15.0); WHITE BLOOD COUNT 5.8 x10^3/uL (4.8-10.8)
[2023-04-10 20:57] LABS: ALBUMIN 4.4 g/dL (3.2-5.5); ALBUMIN/GLOBULIN RATIO 1.5 (1.0-2.2); CALCIUM 9.4 mg/dL (8.5-10.3); CREATININE 0.9 mg/dL (0.6-1.3); POTASSIUM 4.2 mmol/L (3.5-4.5); TOTAL PROTEIN 7.3 g/dL (6.4-8.9)
[2023-04-10] MEDS ORDERED: SODIUM CHLORIDE 0.9% 500 ML IV STA (23:35)
--- NOTE | 2023-04-10 23:42 | ED Physician Documentation ---
History of Present Illness - Stated complaint Stated Complaint: N/V/D - Chief complaint Chief Complaint: Abd Pain - History obtained from History obtained from: Patient - Additonal information Additional information: 72-year-old woman with past medical history of IA status post stents, high blood pressure, hyperlipidemia, type 2 diabetes, presents with nonbloody nonbilious nausea and vomiting and nonbloody diarrhea starting at 1 AM, associated with chills and sweating with generalized feeling of malaise. Patient currently denies nausea. She has not had a formal fever at home. Denies abdominal pain. denies urinary symptoms. PD PAST MEDICAL HISTORY - Past Medical History Past Medical History: Yes Cardiovascular: IA Respiratory: None Neuro: None Endocrine/Autoimmune: Type 2 diabetes, HyPOthyroidism GI: GERD, Hiatal hernia FINANCIAL PLANNER: None : None HEENT: None Psych: None Musculoskeletal: None Derm: None - Past Surgical History Past Surgical History: Yes General: Colonoscopy /FINANCIAL PLANNER: Tubal ligation Cardiovascular: Coronary stent - Present Medications Home Medications: Ambulatory Orders Medication Instructions Recorded Confirmed Amlodipine Besylate [Norvasc] 2.5 mg PO QPM 04/07/20 05/21/20 Amlodipine Besylate [Norvasc] 5 mg PO DAILY 04/07/20 05/21/20 Atorvastatin [Lipitor] 40 mg PO QPM 04/07/20 05/21/20 Latanoprost 0.005% Ophth Drops 1 drops LEFTEYE DAILY 04/07/20 05/21/20 [Xalatan Ophth Drops] Levothyroxine Sodium [Synthroid] 175 mcg PO QDAC 04/07/20 05/21/20 Liraglutide [Victoza 2-Karel] 1.8 mg SUBQ DAILY 04/07/20 05/21/20 Metoprolol Succinate [Toprol Xl] 150 mg PO DAILY 04/07/20 05/21/20 Omeprazole [PriLOSEC] 20 mg PO DAILY 04/07/20 05/21/20 Ondansetron Odt [Zofran Odt] 4 mg PO DAILY 04/07/20 05/21/20 glipiZIDE [Glipizide] 10 mg PO BID 04/07/20 05/21/20 Loperamide [Imodium] 2 mg PO QID PRN #6 capsule 12/19/20 01/31/21 Diphenoxylate/Atropine [Lomotil] 1 each PO QID PRN #20 tablet 07/14/21 Lactobacillus Combination No.4 1 each PO BID 10 Days #20 cap 07/14/21 [Probiotic] Ondansetron Odt [Zofran] 4 mg TL Q6H PRN #10 tablet 07/14/21 cephALEXin [Keflex] 500 mg PO TID 5 Days #15 cap 07/14/21 Ondansetron Odt [Zofran Odt] 4 mg TL Q6H PRN #10 tablet 04/10/23 - Allergies Allergies/Adverse Reactions: Allergies Allergy/AdvReac Type Severity Reaction Status Date / Time fluvastatin [From Lescol] Allergy Unknown Verified 04/10/23 20:13 omeprazole [From Prilosec] Allergy Unknown Verified 04/10/23 20:13 Penicillins Allergy Nausea Verified 04/10/23 20:13 Sulfa (Sulfonamide Allergy not known Verified 04/10/23 20:13 Antibiotics) benazepril [From Lotensin] AdvReac Respiratory Verified 04/10/23 20:13 - Social History Does the pt smoke?: No Smoking Status: Never smoker Does the pt drink ETOH?: No Does the pt have substance abuse?: No - Immunizations Immunizations are current?: Yes - POLST Patient has POLST: No PD ED PE NORMAL - Vitals Vital signs reviewed: Yes - General General: Alert and oriented X 3, No acute distress, Well developed/nourished - HEENT HEENT: Atraumatic, PERRL, EOMI, Moist mucous membranes, Pharynx benign - Neck Neck: Supple, no meningeal sign - Cardiac Cardiac: RRR - Respiratory Respiratory: No respiratory distress, Clear bilaterally - Abdomen Abdomen: Non tender, Non distended - Back Back: No CVA TTP - Derm Derm: Normal color, Warm and dry - Extremities Extremities: No deformity, No edema - Neuro Neuro: Alert and oriented X 3, No motor deficit, No sensory deficit - Psych Psych: Normal mood, Normal affect Results - Vitals Vitals: Vital Signs - 24 hr 04/10/23 04/10/23 04/10/23 20:13 23:11 23:30 Temperature 36.8 C Heart Rate 82 92 90 Respiratory 16 16 18 Rate Blood Pressure 111/60 129/61 138/88 H O2 Saturation 98 100 97 Oxygen O2 Source Room air - Labs Labs: Laboratory Tests 04/10/23 04/10/23 20:25 20:25 WBC 5.8 RBC 5.53 H Hgb 15.7 Hct 49.3 H MCV 89.2 MCH 28.4 MCHC 31.8 L RDW 14.6 Plt Count 240 MPV 10.7 Neut # (Auto) 4.9 Lymph # (Auto) 0.4 L [place] # (Auto) 0.4 Eos # (Auto) 0.1 Baso # (Auto) 0.0 Absolute Nucleated RBC 0.00 Nucleated RBC % 0.0 Sodium 135 Potassium 4.2 Chloride 100 L Carbon Dioxide 24 Anion Gap 11.0 BUN 21 H Creatinine 0.9 Estimated GFR (MDRD) 62 L Glucose 216 H Calcium 9.4 Total Bilirubin 1.0 AST 16 ALT 19 Alkaline Phosphatase 45 Total Protein 7.3 Albumin 4.4 Globulin 2.9 Albumin/Globulin Ratio 1.5 Lipase 14 PD Medical Decision Making - ED course ED course: 72-year-old woman presents with chills, less, nausea vomiting and diarrhea consistent with acute viral illness. Doubt DKA given patient is without abdominal pain or nausea at this time and has normal anion gap. Her lab work is pretty benign including CBC, abdominal panel. 500cc IVF provided given she had large volume diarrhea today and will benefit from rehydration. Advised outpatient follow-up with PCP and symptomatic care was discussed. Return precautions given. Departure - Departure Disposition: 01 Home, Self Care Clinical Impression: Vomiting, Diarrhea, Chills Condition: Stable Instructions: ED Diarrhea Viral Prescriptions: Ondansetron Odt [Zofran Odt] 4 mg TL Q6H PRN #10 tablet PRN Reason: Nausea / Vomiting Comments: You were seen in the emergency department for vomiting and diarrhea. You likely have a virus that can take a few days to improve. Zofran prescription was sent electronically to [facility]. Please follow-up with your primary care provider and return to the emergency department if you have any new or worsening symptoms or other concerns.
[2023-04-11 00:12] VITALS: BP 112/51; O2SAT 94
== END 2023-04-11 00:12 | disposition home or self-care (01) ==
LOC: ED 20:10
DX: R11.2 Nausea with vomiting, unspecified (principal); R19.7 Diarrhea, unspecified; R68.83 Chills (without fever); E11.9 Type 2 diabetes mellitus without complications; E03.9 Hypothyroidism, unspecified; Z79.899 Other long term (current) drug therapy; Z79.84 Long term (current) use of oral hypoglycemic drugs
CPT/HCPCS: 36415; 80053; 83690; 85025; 99283

== ENCOUNTER 2023-04-16 07:07 | Outpatient (CLI) | payer MEDICARE, BC ==
[2023-04-16 07:45] LABS: CALCIUM 9.3 mg/dL (8.5-10.3); CREATININE 0.6 mg/dL (0.6-1.3); POTASSIUM 3.6 mmol/L (3.5-4.5)
[2023-04-16 11:25] LABS: ESTIMATED AVERAGE GLUCOSE 186 mg/dL (70-100); HEMOGLOBIN A1c% 8.1 % (4.27-6.07)
== END 2023-04-16 07:08 | disposition home or self-care (01) ==
LOC: LAB 07:07
PROVIDERS: ATTEND Physician Assistant Medical
DX: E11.9 Type 2 diabetes mellitus without complications (principal)
CPT/HCPCS: 36415; 80048; 83036

== ENCOUNTER 2023-07-16 06:51 | Outpatient (CLI) | payer MEDICARE, BC ==
[2023-07-16 07:24] LABS: ALBUMIN 4.2 g/dL (3.2-5.5); ALBUMIN/GLOBULIN RATIO 1.6 (1.0-2.2); ALKALINE PHOSPHATASE 43 IU/L (42-121); ALT ALANINE AMINOTRANSFERASE 17 IU/L (10-60); AST ASPARTATE AMINOTRANSFERASE 15 IU/L (10-42); BILIRUBIN,TOTAL 0.8 mg/dL (0.2-1.0); BUN - BLOOD UREA NITROGEN 14 mg/dL (6-20); CALCIUM 9.6 mg/dL (8.5-10.3); CARBON DIOXIDE - CO2 28 mmol/L (21-32); CHLORIDE 102 mmol/L (101-111); CHOLESTEROL 185 mg/dL; CREATININE 0.7 mg/dL (0.6-1.3); GFR - MDRD 82 (>89); GLUCOSE 178 mg/dL (74-104); HDL CHOLESTEROL 31 mg/dL; SODIUM 137 mmol/L (135-145); TOTAL PROTEIN 6.9 g/dL (6.4-8.9); TRIGLYCERIDES 655 mg/dL (48-352)
[2023-07-16 07:36] LABS: LDL CHOLESTEROL,DIRECT 70 mg/dL (75-193); LDLD/HDL RATIO 2.3 (<4.4)
[2023-07-16 10:44] LABS: ESTIMATED AVERAGE GLUCOSE 189 mg/dL (70-100); HEMOGLOBIN A1c% 8.2 % (4.27-6.07)
== END 2023-07-16 06:52 | disposition home or self-care (01) ==
LOC: LAB 06:51
PROVIDERS: ATTEND Physician Assistant Medical
DX: E11.9 Type 2 diabetes mellitus without complications (principal)
CPT/HCPCS: 36415; 80053; 80061; 83036; 83721

== ENCOUNTER 2023-10-16 06:55 | Outpatient (CLI) | payer MEDICARE, BC ==
[2023-10-16 07:27] LABS: BUN - BLOOD UREA NITROGEN 18 mg/dL (6-20); CALCIUM 9.8 mg/dL (8.5-10.3); CARBON DIOXIDE - CO2 28 mmol/L (21-32); CHLORIDE 103 mmol/L (101-111); CHOL/HDL RATIO 5.4 (<4.4); CHOLESTEROL 207 mg/dL; CREATININE 0.8 mg/dL (0.6-1.3); GFR - MDRD 71 (>89); GLUCOSE 200 mg/dL (74-104); HDL CHOLESTEROL 38 mg/dL; POTASSIUM 4.4 mmol/L (3.5-4.5); SODIUM 138 mmol/L (135-145); TRIGLYCERIDES 660 mg/dL (48-352)
[2023-10-16 08:13] LABS: LDL CHOLESTEROL,DIRECT 72 mg/dL (75-193); LDLD/HDL RATIO 1.9 (<4.4)
[2023-10-16 11:41] LABS: ESTIMATED AVERAGE GLUCOSE 192 mg/dL (70-100); HEMOGLOBIN A1c% 8.3 % (4.27-6.07)
== END 2023-10-16 06:56 | disposition home or self-care (01) ==
LOC: LAB 06:55
PROVIDERS: ATTEND Physician Assistant Medical
DX: E11.9 Type 2 diabetes mellitus without complications (principal)
CPT/HCPCS: 36415; 80048; 80061; 83036; 83721